=== PATIENT | male | born 1955 | race Caucasian/White ===

== ENCOUNTER 2018-03-19 14:56 | Emergency (ER) | payer OTHER ==
--- NOTE | 2018-03-19 16:05 | ER Document Report ---
ED Medical Screen (RME) - General Mode of Arrival: Ambulatory Information source: Patient TRAVEL OUTSIDE OF THE [place] IN LAST 30 DAYS: No <JAKOB ALEJO - Last Filed: 03/19/18 17:52> <MARGE HEWITT - Last Filed: 03/19/18 19:15> <SALMA ZELAYA - Last Filed: 03/19/18 21:00> - General Chief Complaint: Abdominal Injury Stated Complaint: ABDOMEN INJURY Time Seen by Provider: 03/19/18 15:52 Notes: Patient is a 62-year-old male with a history of recurrent kidney infections and bladder cancer presents to the emergency department complaining of a blood in his urostomy bag. Patient states that he was in [employer] when he walked into a grocery bag andres that possibly punctured his urostomy bag. Patient states he has been bleeding bright red blood in his bag since the incident. Patient reports having the urostomy bag placed in 2007 in [place] due to bladder cancer. [facility] GENERAL: Alert, interacts well. No acute distress. HEAD: Normocephalic, Atraumatic. NECK: Full range of motion. Supple. Trachea midline. LUNGS: No respiratory distress. HEART: Regular rate and rhythm. No murmurs, gallops, or rubs. ABDOMEN: Urostomy bag in place. Output contains bright red blood with no obvious clots, gross amount. Dark red blood at approximately 9'oclock. EXTREMITIES: Moves all four extremities spontaneously. PSYCH: Normal affect, normal mood. I have greeted and performed a rapid initial assessment of this patient. A comprehensive ED assessment and evaluation of the patient, analysis of test results and completion of the medical decision making process will be conducted by additional ED providers. (JAKOB ALEJO) - Related Data Allergies/Adverse Reactions: No Known Allergies Allergy (Unverified 03/13/16 09:38) Past Medical History - General Information source: Patient Renal/ Medical History: Reports: Hx Kidney Stones Past Surgical History: Reports: Hx Urinary Tract Surgery - Bladder resection for cancer, Hx Urostomy - Immunizations Hx Diphtheria, Pertussis, Tetanus Vaccination: Yes <JAKOB ALEJO - Last Filed: 03/19/18 17:52> - Vital signs Vitals: Temp Pulse Resp BP Pulse Ox 98.0 F 67 18 149/75 H 98 03/19/18 15:04 03/19/18 15:04 03/19/18 15:04 03/19/18 15:04 03/19/18 15:04 Course - Laboratory Result Diagrams: 03/19/18 16:15 03/19/18 16:15 <JAKOB ALEJO - Last Filed: 03/19/18 17:52> - Laboratory Result Diagrams: 03/19/18 16:15 03/19/18 16:15 <MARGE HEWITT - Last Filed: 03/19/18 19:15> - Laboratory Result Diagrams: 03/19/18 16:15 03/19/18 16:15 <SALMA ZELAYA - Last Filed: 03/19/18 21:00> - Vital Signs Vital signs: Temp Pulse Resp BP Pulse Ox 97.3 F 50 L 16 144/77 H 100 03/19/18 19:07 03/19/18 19:07 03/19/18 19:07 03/19/18 19:07 03/19/18 19:07 - Laboratory Laboratory results interpreted by me: 03/19/18 03/19/18 16:15 16:15 Chloride 110 H Carbon Dioxide 20 L Creatinine 1.91 H Est GFR ( Amer) 43 L Est GFR (Non-Af Amer) 36 L AST 15 L ALT 17 L Urine Protein 30 H Urine Blood LARGE H Ur Leukocyte Esterase MODERATE H Doctor's Discharge <JAKOB ALEJO - Last Filed: 03/19/18 17:52> <MARGE HEWITT F - Last Filed: 03/19/18 19:15> <SALMA ZELAYA - Last Filed: 03/19/18 21:00> - Discharge Clinical Impression: Complication of urostomy Condition: Good Disposition: HOME, SELF-CARE Instructions: Hematuria ([facility]) Additional Instructions: Your seen today in the emergency room for your urostomy. You are draining some blood, continue to monitor any worsening of your symptoms , if your urostomy stops putting out urine you begin to pass large amounts of blood or have intensifying abdominal pain return to the emergency room as it may be a more serious condition. Forms: Elevated Blood Pressure
[2018-03-19 16:27] LABS: ABSOLUTE EOSINOPHILS # (AUTO) 0.1 10^3/uL (0.0-0.6); ABSOLUTE LYMPHOCYTES (AUTO) 1.6 10^3/uL (0.5-4.7); ABSOLUTE MONOCYTES (AUTO) 0.5 10^3/uL (0.1-1.4); ABSOLUTE NEUT (AUTO) 6.6 10^3/uL (1.7-8.2); BASOPHILS % (AUTO) 0.3 % (0-2); HEMATOCRIT 42.8 % (37.9-51.0); HEMOGLOBIN 14.9 g/dL (13.5-17.0); LYMPHOCYTES % (AUTO) 18.3 % (13-45); MEAN CORPUSCULAR HEMOGLOBIN 32.5 pg (27.0-33.4); MEAN CORPUSCULAR HGB CONC 34.7 g/dL (32.0-36.0); MEAN CORPUSCULAR VOLUME 94 fl (80-97); MONOCYTES % (AUTO) 5.8 % (3-13); PLATELET COUNT 253 10^3/uL (150-450); RED BLOOD COUNT 4.58 10^6/uL (4.35-5.55); RED CELL DISTRIBUTION WIDTH 13.9 % (11.5-14.0); SEGMENTED NEUTROPHILS % (AUTO) 74.6 % (42-78); TOTAL CELLS COUNTED % (AUTO) 100 %; WHITE BLOOD COUNT 8.9 10^3/uL (4.0-10.5)
[2018-03-19 16:33] LABS: PARTIAL THROMBOPLASTIN TIME 28.2 SEC (23.5-35.8)
[2018-03-19 16:37] LABS: INTERNATIONAL RATION (INR) 0.88; PROTHROMBIN TIME 12.4 SEC (11.4-15.4)
[2018-03-19 16:43] LABS: ALANINE AMINOTRANSFERASE 17 U/L (21-72); ALBUMIN 4.3 g/dL (3.5-5.0); ALKALINE PHOSPHATASE 85 U/L (38-126); ANION GAP 10 (5-19); ASPARTATE AMINO TRANSFERASE 15 U/L (17-59); BILIRUBIN,DIRECT 0.3 mg/dL (0.0-0.4); BILIRUBIN,TOTAL 0.5 mg/dL (0.2-1.3); BLOOD UREA NITROGEN 17 mg/dL (7-20); CALCIUM 9.3 mg/dL (8.4-10.2); CARBON DIOXIDE 20 mmol/L (22-30); CHLORIDE 110 mmol/L (98-107); GLUCOSE 108 mg/dL (75-110); SODIUM 139.9 mmol/L (137-145); TOTAL PROTEIN 7.4 g/dL (6.3-8.2)
[2018-03-19 18:32] LABS: BILIRUBIN,URINE NEGATIVE (NEGATIVE); GLUCOSE, URINE NEGATIVE (NEGATIVE); KETONES,URINE NEGATIVE (NEGATIVE); LEUKOCYTE ESTERASE,URINE MODERATE (NEGATIVE); NITRITE,URINE NEGATIVE (NEGATIVE); PROTEIN,URINE 30 mg/dL (NEGATIVE); URINE SPECIFIC GRAVITY 1.008; UROBILINOGEN,URINE NEGATIVE mg/dL (<2.0)
[2018-03-19 18:35] LABS: APPEARANCE,URINE TURBID; COLOR,URINE RED
[2018-03-19 19:08] VITALS: BP 144/77
== END 2018-03-19 19:31 | disposition home or self-care (01) ==
LOC: ER 14:56
DX: N99.538 Other complication of continent stoma of urinary tract (principal); W22.8XXA Striking against or struck by other objects, initial encounter; Z85.51 Personal history of malignant neoplasm of bladder
CPT/HCPCS: 36415; 80053; 81001; 85025; 85610; 85730; 99283

== ENCOUNTER 2018-11-12 23:52 | Emergency (ER) | payer OTHER ==
[2018-11-13] MEDS ORDERED: ASPIRIN 81 MG TABLET, CHEWABLE PO ONE (00:45)
--- NOTE | 2018-11-13 00:47 | ER Document Report ---
ED Medical Screen (RME) - General Chief Complaint: Chest Pain Stated Complaint: CHEST PAIN Time Seen by Provider: 11/13/18 00:43 Mode of Arrival: Wheelchair Information source: Patient Notes: 63-year-old male presented to ED for complaint of chest pain started around 11 PM tonight. He states it was in his left lower chest radiating down both arms. He states he had chest pain in the past but is never lasted this long. He states he had pain and numbness down both arms. He states that he is on chronic pain management of tramadol. He states he took a tramadol about 2 PM and ibuprofen 800 around 2 PM. He states he has a history of high blood pressure but no other cardiac history. He does smoke a pack a day but does not drink or use any drugs. I have greeted and performed a rapid initial assessment of this patient. A comprehensive ED assessment and evaluation of the patient, analysis of test results and completion of medical decision making process will be conducted by an additional ED providers. Dictation of this chart was performed using voice recognition software; therefore, there may be some unintended grammatical errors. TRAVEL OUTSIDE OF THE [place] IN LAST 30 DAYS: No - Related Data Allergies/Adverse Reactions: No Known Allergies Allergy (Unverified 03/13/16 09:38) Past Medical History - Past Medical History Cardiac Medical History: Denies: Hx Coronary Artery Disease Renal/ Medical History: Reports: Hx Kidney Stones. Denies: Hx Peritoneal Dialysis Past Surgical History: Reports: Hx Urinary Tract Surgery - Bladder resection for cancer, Hx Urostomy - Immunizations Hx Diphtheria, Pertussis, Tetanus Vaccination: Yes Physical Exam - Vital signs Vitals: Temp Pulse Resp BP Pulse Ox 97.2 F 53 L 20 173/79 H 100 11/13/18 00:20 11/13/18 00:20 11/13/18 00:20 11/13/18 00:20 11/13/18 00:20 Course - Vital Signs Vital signs: Temp Pulse Resp BP Pulse Ox 97.2 F 53 L 20 173/79 H 100 11/13/18 00:20 11/13/18 00:20 11/13/18 00:20 11/13/18 00:20 11/13/18 00:20
--- NOTE | 2018-11-13 01:53 | RADIOLOGY REPORT (SQ) ---
EXAM DESCRIPTION: [facility]: XR CHEST 2 VIEWS Views: 2 CLINICAL HISTORY: 63 years Male, chest pain radiating down arms COMPARISON: None. FINDINGS: Lungs are symmetrically hyperinflated. No pneumothorax or pleural effusion. No acute infiltrates. There is minimal apical scarring. Possible 5 mm lateral left lower lobe nodule, not definitely calcified. Cardiomediastinal silhouette is within normal limits. Bony structures are unremarkable for age. IMPRESSION: 1. No acute cardiothoracic abnormality. 2. Hyperinflation, typical for COPD 3. Indeterminate 5 mm nodule in the lateral left lower lobe. Comparison with any previous radiographs would be helpful. In the absence of this, noncontrast lung CT should be considered, especially if patient has risk factors for lung carcinoma.
[2018-11-13 03:16] LABS: ABSOLUTE EOSINOPHILS # (AUTO) 0.1 10^3/uL (0.0-0.6); ABSOLUTE LYMPHOCYTES (AUTO) 1.7 10^3/uL (0.5-4.7); ABSOLUTE MONOCYTES (AUTO) 0.6 10^3/uL (0.1-1.4); ABSOLUTE NEUT (AUTO) 6.3 10^3/uL (1.7-8.2); BASOPHILS % (AUTO) 0.4 % (0-2); EOSINOPHILS % (AUTO) 0.8 % (0-6); HEMATOCRIT 38.6 % (37.9-51.0); HEMOGLOBIN 13.8 g/dL (13.5-17.0); LYMPHOCYTES % (AUTO) 19.1 % (13-45); MEAN CORPUSCULAR HGB CONC 35.6 g/dL (32.0-36.0); MEAN CORPUSCULAR VOLUME 90 fl (80-97); MONOCYTES % (AUTO) 7.2 % (3-13); PLATELET COUNT 250 10^3/uL (150-450); RED BLOOD COUNT 4.29 10^6/uL (4.35-5.55); RED CELL DISTRIBUTION WIDTH 13.3 % (11.5-14.0); SEGMENTED NEUTROPHILS % (AUTO) 72.5 % (42-78); TOTAL CELLS COUNTED % (AUTO) 100 %; WHITE BLOOD COUNT 8.7 10^3/uL (4.0-10.5)
[2018-11-13 04:09] LABS: ALANINE AMINOTRANSFERASE 11 U/L (21-72); ALBUMIN 2.1 g/dL (3.5-5.0); ALKALINE PHOSPHATASE 55 U/L (38-126); ANION GAP 6 (5-19); ASPARTATE AMINO TRANSFERASE 11 U/L (17-59); BILIRUBIN,DIRECT 0.4 mg/dL (0.0-0.4); BILIRUBIN,TOTAL 0.4 mg/dL (0.2-1.3); BLOOD UREA NITROGEN 13 mg/dL (7-20); CARBON DIOXIDE 12 mmol/L (22-30); CHLORIDE 125 mmol/L (98-107); CREATINE KINASE 47 U/L (55-170); GLUCOSE 72 mg/dL (75-110); SODIUM 143.4 mmol/L (137-145); TOTAL PROTEIN 4.1 g/dL (6.3-8.2)
[2018-11-13 04:21] LABS: CREATINE KINASE MB 4.35 ng/mL (<4.55)
[2018-11-13 04:23] LABS: CALCIUM 5.6 mg/dL (8.4-10.2); POTASSIUM 2.2 mmol/L (3.6-5.0)
[2018-11-13 04:24] LABS: TROPONIN I 0.256 ng/mL
[2018-11-13] MEDS ORDERED: CALCIUM GLUCONATE 1000 MG/10 ML INJ IV ONE ×2 (04:31→05:34)
[2018-11-13] MEDS ORDERED: MAGNESIUM SULFATE/D5W 1 GM/100 ML RTUPB IV ONE (04:37)
[2018-11-13] MEDS ORDERED: NITROGLYCERIN 0.4 MG/TAB 25 TAB/BOTTLE SL ONE (04:41)
[2018-11-13] MEDS ORDERED: NORMAL SALINE 500 ML IV ONE (05:11)
--- NOTE | 2018-11-13 05:13 | ER Document Report ---
ED General - General Chief Complaint: Chest Pain Stated Complaint: CHEST PAIN Time Seen by Provider: 11/13/18 00:43 Mode of Arrival: Wheelchair TRAVEL OUTSIDE OF THE [place] IN LAST 30 DAYS: No - HPI Notes: Patient is a 63-year-old male presents to the emergency department for evalu ation of chest pain. He states it started while he was at home, at rest. He has had similar pain in the past, but it went away after about 15 minutes. He states today he was laying on the couch when he had a pain across his entire lower chest. It radiated into bilateral elbows, left greater than right. He states he felt some tingling in that side as well. He comes in because it was continuing for longer than normal, over an hour. I asked him if he has pain at the initial evaluation, the patient states "not really." He states he felt somewhat short of breath with it. He denies any nausea, diaphoresis, near syncope with it. Patient has a history of back pain and takes ibuprofen and U ltram. He states he really does not follow very closely with a doctor, as [facility] - Related Data Allergies/Adverse Reactions: No Known Allergies Allergy (Unverified 03/13/16 09:38) Past Medical History - General Information source: Patient - Social History Smoking Status: Current Every Day Smoker Chew tobacco use (# tins/day): No Drug Abuse: None Family History: Other - Unknown, patient does not have a relationship with his siblings or parents Patient has suicidal ideation: No Patient has homicidal ideation: No - Past Medical History Cardiac Medical History: Denies: Hx Coronary Artery Disease Renal/ Medical History: Reports: Hx Kidney Stones Malignancy Medical History: Reports Other - History of bladder cancer, status post urostomy and cystectomy Past Surgical History: Reports: Hx Urinary Tract Surgery - Bladder resection for cancer, Hx Urostomy - Immunizations Hx Diphtheria, Pertussis, Tetanus Vaccination: Yes Review of Systems - Review of Systems Constitutional: No symptoms reported EENT: No symptoms reported Cardiovascular: See HPI Respiratory: No symptoms reported Gastrointestinal: No symptoms reported Genitourinary: No symptoms reported Musculoskeletal: No symptoms reported Skin: No symptoms reported Neurological/Psychological: No symptoms reported Physical Exam - Vital signs Vitals: Temp Pulse Resp BP Pulse Ox 97.2 F 53 L 20 173/79 H 100 11/13/18 00:20 11/13/18 00:20 11/13/18 00:20 11/13/18 00:20 11/13/18 00:20 - Notes Notes: Vital signs reviewed, please refer to chart. Head is normocephalic, atraumatic. Pupils equal round, reactive to light. Neck is supple without meningismus. Heart is regular rate and rhythm. Lungs are clear to auscultation bilaterally. Abdomen is soft, nontender, normoactive bowel sounds throughout. Extremities without cyanosis, clubbing. Posterior calves are nontender. Peripheral pulses are equal. Skin is warm and dry. Patient is awake, alert, neurological exam is nonfocal. Course - Re-evaluation Re-evalutation: 11/13/18 05:13 Patient presents to the emergency department for evaluation. He complains of a chest pain that radiates into bilateral elbows. He is placed on a gas leak inspector and labs were obtained. Evidently there was some difficulty obtaining labs from this gentleman. His EKG showed some diffuse flattening, is difficult to interpret because of wandering baseline. He did not have any old studies available for comparison. He did have some concerning appearing segments that resembled U waves. Laboratory investigations were obtained. There are marketed metabolic abnormalities noted, with renal function being normal. His calcium was markedly low, even with correction for albumin. His potassium was low. His magnesium was low. His phosphorus was low. I went back into reassess the p atient and evaluate for history that could contribute to these derangements. At that time the patient was found to be having significant chest pain, radiating across his lower chest. At that time his heart rate was in the 40s, blood pressure 110 systolic. Pacer pads were placed in the room. He was administered 1 subungual nitroglycerin. He became chest pain-free following that. His heart rate became between 38 and 45. His blood pressure was supported with IV fluids. He was administered IV magnesium, IV calcium, IV fluids, IV potassium. I spoke with our hospitalist, who agrees that in light of a significant end STEMI, the patient would require transfer. I spoke with Dr. Lima, physician at [facility] at 5:50 AM, who accepted the patient in transfer. He did recommend administration of heparin, and this was ordered. 11/13/18 05:54 11/13/18 05:58 - Vital Signs Vital signs: Temp Pulse Resp BP Pulse Ox 98.5 F 53 L 13 114/56 L 98 11/13/18 06:12 11/13/18 00:20 11/13/18 06:12 11/13/18 06:12 11/13/18 06:12 - Laboratory Result Diagrams: 11/13/18 03:09 11/13/18 03:09 Laboratory results interpreted by me: 11/13/18 11/13/18 11/13/18 03:09 03:09 03:35 RBC 4.29 L Potassium 2.2 L* Chloride 125 H Carbon Dioxide 12 L Glucose 72 L Calcium 5.6 L* Phosphorus 2.1 L Magnesium 1.5 L AST 11 L ALT 11 L Creatine Kinase 47 L Total Protein 4.1 L Albumin 2.1 L - EKG Interpretation by Me Additional EKG results interpreted by me: 11/13/18 05:57 First EKG revealed a wandering baseline was difficult to interpret. Sinus bradycardia with a rate of 58 bpm. Normal axis and intervals. Nonspecific ST changes, mild U wave appearing segments. Repeat EKG revealed a sinus bradycardia with a rate of 43 bpm. Normal axis and intervals. Diffuse T wave flattening, ST depression laterally concerning for possible ischemia. Critical Care Note - Critical Care Note Total time excluding time spent on procedures (mins): 45 Discharge - Discharge Clinical Impression: Non-ST elevation [place] (NSTEMI), Hypokalemia, Hypocalcemia, Non-anion gap metabolic acidosis, Hypomagnesemia Condition: Stable Disposition: [facility] Admitting Provider: Dr. Lima
[2018-11-13 05:17] LABS: PHOSPHORUS 2.1 mg/dL (2.5-4.5)
[2018-11-13] MEDS: POTASSI CL 20 MEQ/50 ML RIDER 20 MEQ/50 ML RTUPB IV SCH ×2 (05:39→07:15)
[2018-11-13 06:17] VITALS: BP 114/56
[2018-11-13] MEDS ORDERED: HEPARIN SODIUM,PORCINE/D5W 25,000 UNIT/250 ML RTUINJ IV PRN (06:34)
[2018-11-13] MEDS ORDERED: HEPARIN SOD (PORCINE) 1,000 UNIT/ML 10 ML VIAL IV ONE (06:34)
--- NOTE | 2018-11-13 07:16 | EKG REPORT ---
SEVERITY:- ABNORMAL ECG - SINUS RHYTHM BORDERLINE RIGHT AXIS DEVIATION REPOL ABNRM SUGGESTS ISCHEMIA, ANT-LAT LEADS : Confirmed by: Amandeep Uribe MD 13-Nov-2018 07:15:25
[2018-11-13 07:17] LABS: AMORPHOUS SEDIMENT,URINE TRACE /HPF; APPEARANCE,URINE SLIGHTLY-CLOUDY; BILIRUBIN,URINE NEGATIVE (NEGATIVE); COLOR,URINE YELLOW; GLUCOSE, URINE NEGATIVE (NEGATIVE); KETONES,URINE NEGATIVE (NEGATIVE); LEUKOCYTE ESTERASE,URINE LARGE (NEGATIVE); NITRITE,URINE POSITIVE (NEGATIVE); PROTEIN,URINE 30 mg/dL (NEGATIVE); URINE SPECIFIC GRAVITY 1.009; UROBILINOGEN,URINE NEGATIVE mg/dL (<2.0)
[2018-11-13 08:09] LABS: INTERNATIONAL RATION (INR) 1.18; PROTHROMBIN TIME 15.6 SEC (11.4-15.4)
[2018-11-13] MEDS ORDERED: HEPARIN SOD (PORCINE) 1,000 UNIT/ML 10 ML VIAL IV PRN (09:34)
--- NOTE | 2018-11-13 22:17 | EKG REPORT ---
SEVERITY:- ABNORMAL ECG - SINUS BRADYCARDIA NONSPECIFIC T ABNORMALITIES, LATERAL LEADS : Confirmed by: Amandeep Uribe MD 13-Nov-2018 22:16:16
== END 2018-11-13 08:38 | disposition short-term general hospital (02) ==
LOC: ER 23:52
DX: I21.4 Non-ST elevation (NSTEMI) myocardial infarction (principal); E87.6 Hypokalemia; E83.42 Hypomagnesemia; E87.2 Acidosis; F17.200 Nicotine dependence, unspecified, uncomplicated; Z87.442 Personal history of urinary calculi
CPT/HCPCS: 93005 ×2; 96376; 99291; 96375; 96365; 96367; 36415; 82553; 82550; 83735; 84100; 85025; 85610; 85730; 80053; 81001; 84484; 71046; 93010 ×2; J1644 ×2; J0610; J3475; J3480; J7040

== ENCOUNTER 2019-01-01 09:39 | Emergency (ER) | payer OTHER ==
[2019-01-01] MEDS ORDERED: ASPIRIN 81 MG TABLET, CHEWABLE PO ONE (10:06)
--- NOTE | 2019-01-01 10:09 | ER Document Report ---
ED Medical Screen (RME) - General Chief Complaint: Chest Pain Stated Complaint: CHEST PAIN Time Seen by Provider: 01/01/19 10:02 Notes: Patient is a 63-year-old male presents to the emergency department for chest pain. Patient states at the beginning of November he presents to this emergency department and was found to be having a heart attack. States he was sent to [facility] and inevitably got 2 stents placed in his RCA. Patient states he was at cardiac rehab yesterday when he developed chest pain. States this morning the pain awoke him from sleep which is why he presents to the emergency room. Patient is tearful in triage, very concerned. GENERAL: Alert, interacts well. No acute distress. LUNGS: Clear to auscultation bilaterally, no wheezes, rales, or rhonchi. No respiratory distress. HEART: Regular rate and rhythm. No murmur I have greeted and performed a rapid initial assessment of this patient. A comprehensive ED assessment and evaluation of the patient, analysis of test results and completion of the medical decision making process will be conducted by additional ED providers. I have specifically instructed the patient or family members with the patient to immediately return to any nursing staff should anything change in the patient's condition or with their chief complaint. This medical record was dictated with voice recognizing software. There may be grammatical, syntax errors that are unintended. TRAVEL OUTSIDE OF THE [place] IN LAST 30 DAYS: No - Related Data Allergies/Adverse Reactions: No Known Allergies Allergy (Unverified 03/13/16 09:38) Past Medical History - Social History Frequency of alcohol use: None Drug Abuse: None - Past Medical History Cardiac Medical History: Denies: Hx Coronary Artery Disease Renal/ Medical History: Reports: Hx Kidney Stones. Denies: Hx Peritoneal Dialysis Past Surgical History: Reports: Hx Urinary Tract Surgery - Bladder resection for cancer, Hx Urostomy - Immunizations Hx Diphtheria, Pertussis, Tetanus Vaccination: Yes Physical Exam - Vital signs Vitals: Temp Pulse Resp BP Pulse Ox 97.5 F 61 16 133/63 H 100 01/01/19 10:00 01/01/19 10:00 01/01/19 10:01/01/19 10:01/01/19 10:00 Course - Vital Signs Vital signs: Temp Pulse Resp BP Pulse Ox 97.5 F 61 16 133/63 H 100 01/01/19 10:00 01/01/19 10:00 01/01/19 10:00 01/01/19 10:00 01/01/19 10:00
--- NOTE | 2019-01-01 10:10 | EKG REPORT ---
SEVERITY:- NORMAL ECG - SINUS RHYTHM : Confirmed by: Keisha Rivero 01-Jan-2019 10:09:49
[2019-01-01 10:30] LABS: ABSOLUTE EOSINOPHILS # (AUTO) 0.1 10^3/uL (0.0-0.6); ABSOLUTE LYMPHOCYTES (AUTO) 1.2 10^3/uL (0.5-4.7); ABSOLUTE MONOCYTES (AUTO) 0.6 10^3/uL (0.1-1.4); ABSOLUTE NEUT (AUTO) 5.6 10^3/uL (1.7-8.2); BASOPHILS % (AUTO) 0.4 % (0-2); EOSINOPHILS % (AUTO) 1.4 % (0-6); HEMOGLOBIN 13.5 g/dL (13.5-17.0); LYMPHOCYTES % (AUTO) 16.1 % (13-45); MEAN CORPUSCULAR HEMOGLOBIN 32.4 pg (27.0-33.4); MEAN CORPUSCULAR HGB CONC 34.6 g/dL (32.0-36.0); MEAN CORPUSCULAR VOLUME 94 fl (80-97); MONOCYTES % (AUTO) 7.4 % (3-13); PLATELET COUNT 303 10^3/uL (150-450); RED BLOOD COUNT 4.17 10^6/uL (4.35-5.55); RED CELL DISTRIBUTION WIDTH 14.1 % (11.5-14.0); SEGMENTED NEUTROPHILS % (AUTO) 74.7 % (42-78); TOTAL CELLS COUNTED % (AUTO) 100 %; WHITE BLOOD COUNT 7.5 10^3/uL (4.0-10.5)
[2019-01-01 10:40] LABS: INTERNATIONAL RATION (INR) 1.01; PROTHROMBIN TIME 13.3 SEC (11.4-15.4)
[2019-01-01 10:45] LABS: ALANINE AMINOTRANSFERASE 18 U/L (21-72); ALBUMIN 4.4 g/dL (3.5-5.0); ALKALINE PHOSPHATASE 116 U/L (38-126); ANION GAP 9 (5-19); ASPARTATE AMINO TRANSFERASE 16 U/L (17-59); BILIRUBIN,DIRECT 0.3 mg/dL (0.0-0.4); BILIRUBIN,TOTAL 0.5 mg/dL (0.2-1.3); BLOOD UREA NITROGEN 22 mg/dL (7-20); CALCIUM 9.2 mg/dL (8.4-10.2); CARBON DIOXIDE 22 mmol/L (22-30); CHLORIDE 111 mmol/L (98-107); CREATINE KINASE 46 U/L (55-170); GLUCOSE 92 mg/dL (75-110); POTASSIUM 4.2 mmol/L (3.6-5.0); TOTAL PROTEIN 7.3 g/dL (6.3-8.2)
--- NOTE | 2019-01-01 10:47 | RADIOLOGY REPORT (SQ) ---
EXAM DESCRIPTION: CHEST SINGLE VIEW COMPLETED DATE/TIME: 01/01/2019 10:29 am REASON FOR STUDY: cp COMPARISON: 11/13/2018 NUMBER OF VIEWS: One view. TECHNIQUE: Single frontal radiographic image of the chest acquired. LIMITATIONS: None. FINDINGS: LUNGS AND PLEURA: There is biapical pleural thickening. No consolidation or effusions. MEDIASTINUM AND HILAR STRUCTURES: Normal in appearance. HEART AND VASCULAR STRUCTURES: No cardiomegaly. No failure. BONES: No acute findings. OTHER: No other significant finding. IMPRESSION: Biapical pleural thickening. No acute findings in the chest. TECHNICAL DOCUMENTATION: JOB ID: [id number] [employer]- All Rights Reserved Reading location - IP/workstation name: [email or web address]
[2019-01-01 10:56] LABS: CREATINE KINASE MB 0.47 ng/mL (<4.55)
[2019-01-01 10:57] LABS: TROPONIN I < 0.012 ng/mL
--- NOTE | 2019-01-01 11:42 | ER Document Report ---
ED General - General Chief Complaint: Chest Pain Stated Complaint: CHEST PAIN Time Seen by Provider: 01/01/19 10:02 Primary Care Provider: GENTRY,REFUGIO [Primary Care Provider] - Follow up as needed TRAVEL OUTSIDE OF THE [place] IN LAST 30 DAYS: No - HPI Notes: Patient is a 63-year-old male presents to the emergency department for evaluation of chest pain. Yesterday he developed right-sided chest pain. It lasted for about a minute. He felt somewhat dizzy, but states that this re solved. He has been taking his medications as prescribed. He states he had another pain on the right side that woke him up from sleep this morning, similar to the first. He went to cardiac rehab today, told him about the pain, and they would not clear him to exercise until evaluated. He denies any chest pain at all at this point. He does have a history of recent non-ST elevation [place], with 2 stents placed in the right coronary artery at [facility] earlier this month. - Related Data Allergies/Adverse Reactions: No Known Allergies Allergy (Unverified 03/13/16 09:38) Home Medications: lisinopril 20mg daily. atrovastatin 80mg daily. brilinta 90mg BID. asa 81mg daily. omeprazole 20mg daily. pantoprazole 40mg daily Past Medical History - General Information source: Patient - Social History Smoking Status: Former Smoker Frequency of alcohol use: None Drug Abuse: None Family History: Other - Unknown, patient does not have a relationship with his siblings or parents Patient has suicidal ideation: No Patient has homicidal ideation: No - Past Medical History Cardiac Medical History: Reports: Hx Coronary Artery Disease, Hx Hypercholesterolemia, Hx Hypertension Renal/ Medical History: Reports: Hx Kidney Stones. Denies: Hx Peritoneal Dialysis Malignancy Medical History: Reports Other - Bladder cancer Past Surgical History: Reports: Hx Urinary Tract Surgery - Bladder resection for cancer, Hx Urostomy - Immunizations Hx Diphtheria, Pertussis, Tetanus Vaccination: Yes Review of Systems - Review of Systems Constitutional: No symptoms reported EENT: No symptoms reported Cardiovascular: See HPI Respiratory: No symptoms reported Gastrointestinal: No symptoms reported, Nausea Musculoskeletal: No symptoms reported Skin: No symptoms reported Neurological/Psychological: No symptoms reported Physical Exam - Vital signs Vitals: Temp Pulse Resp BP Pulse Ox 97.5 F 61 16 133/63 H 100 01/01/19 10:00 01/01/19 10:00 01/01/19 10:00 01/01/19 10:00 01/01/19 10:00 - Notes Notes: This is a pleasant 63-year-old male, tearful, in no acute distress. Vital signs reviewed, please refer to chart. Head is normocephalic, atraumatic. Pupils equal round, reactive to light. Neck is supple without meningismus. Heart is regular rate and rhythm. Lungs are clear to auscultation bilaterally. Abdomen is soft, nontender, normoactive bowel sounds throughout. Extremities without cyanosis, clubbing. Posterior calves are nontender. Peripheral pulses are equal. Skin is warm and dry. Patient is awake, alert, neurological exam is nonfocal. Course - Re-evaluation Re-evalutation: 01/01/19 11:40 Patient presents emergency department for evaluation. Laboratory investigations were obtained, he is placed on a media monitor, imaging ordered. He was initially seen through triage. Laboratory investigations revealed an acute abnormality in his renal function. Patient has a history of urostomy, states output has been normal. He has not followed with urology for some time for this. Laboratory investigations revealed a negative troponin. He is chest pain-free at this time. We will order repeat, continue to follow. 01/01/19 14:58 Patient remained chest pain-free throughout the course of his stay. His repeat troponin was negative. I did discuss his abnormal renal function with the patient. He does take ibuprofen 800 mg regularly. He is told to discontinue this. He is told that if his urostomy output decreases he needs to follow-up immediately or return to the ED. He voiced understanding to this. I will then give him a lab slip to have his metabolic panel rechecked next week. If his chest pain returns, or he develops new or concerning symptoms of any sort, he is to return immediately to the emergency department for reevaluation. He voiced understanding to this and was discharged. - Vital Signs Vital signs: Temp Pulse Resp BP Pulse Ox 97.6 F 61 14 140/71 H 100 01/01/19 15:17 01/01/19 10:00 01/01/19 15:01 01/01/19 15:00 01/01/19 15:01 - Laboratory Result Diagrams: 01/01/19 10:11 01/01/19 10:11 Laboratory results interpreted by me: 01/01/19 01/01/19 10:11 10:11 RBC 4.17 L RDW 14.1 H Chloride 111 H BUN 22 H Creatinine 2.46 H Est GFR ( Amer) 32 L Est GFR (Non-Af Amer) 27 L AST 16 L ALT 18 L Creatine Kinase 46 L - Diagnostic Test Radiology reviewed: Reports reviewed Radiology results interpreted by me: 01/01/19 11:41 Chest X-Ray 01/01/19 10:06 IMPRESSION: Biapical pleural thickening. No acute findings in the chest. - EKG Interpretation by Me Additional EKG results interpreted by me: 01/01/19 11:41 Sinus bradycardia with a rate of 57 bpm. Normal axis and intervals. No acute ST changes concerning for ischemia or infarction. Discharge - Discharge Clinical Impression: Abnormal renal function Chest pain Qualifiers: Chest pain type: unspecified Qualified Code(s): R07.9 - Chest pain, unspecified Condition: Stable Disposition: HOME, SELF-CARE Instructions: Chest Pain of Unclear Cause ([facility]), Kidney Function Abnormality ([facility]) Additional Instructions: No clear cause was identified for your chest pain today. Her lab work did reveal abnormal kidney function. Please stop taking your ibuprofen. [facility]. Have your lab work drawn next Friday to reevaluate this. If you develop decreased urostomy output, increased chest pain, or any other new or concerning symptoms, return immediately to the emergency department for reevaluation. Forms: Follow-Up Laboratory Testing Referrals: [facility] [Primary [facility] Provider] - Follow up as needed
[2019-01-01 15:08] VITALS: BP 140/71
== END 2019-01-01 15:17 | disposition home or self-care (01) ==
LOC: ER 09:39
DX: R94.4 Abnormal results of kidney function studies (principal); R07.9 Chest pain, unspecified; R42 Dizziness and giddiness; I25.2 Old myocardial infarction; Z79.899 Other long term (current) drug therapy; Z87.891 Personal history of nicotine dependence; I25.10 Atherosclerotic heart disease of native coronary artery without angina pectoris; I10 Essential (primary) hypertension
CPT/HCPCS: 36415; 71045; 80053; 82550; 82553; 84484; 85025; 85610; 93005; 93010; 99285

== ENCOUNTER 2019-04-29 08:00 | Day surgery (SDC) | payer OTHER ==
[2019-04-29 08:59] LABS: ANION GAP 14 (5-19); BLOOD UREA NITROGEN 15 mg/dL (7-20); CALCIUM 9.2 mg/dL (8.4-10.2); CARBON DIOXIDE 19 mmol/L (22-30); CHLORIDE 111 mmol/L (98-107); GLUCOSE 90 mg/dL (75-110); POTASSIUM 3.8 mmol/L (3.6-5.0)
[2019-04-29] MEDS ORDERED: PROPOFOL INJ 200 MG/20 ML VIAL IV ONE (11:12)
--- NOTE | 2019-04-29 11:12 | EKG REPORT ---
SEVERITY:- DEFECTIVE ECG - SINUS RHYTHM BORDERLINE RIGHT AXIS DEVIATION LOW VOLTAGE IN FRONTAL LEADS LEAD PLACEMENT ERROR V2. : Confirmed by: Amandeep Uribe MD 29-Apr-2019 11:12:19
[2019-04-29 12:53] VITALS: BP 113/67
--- NOTE | 2019-04-30 12:06 | Operative Report ---
Nonrecallable Operative Report DATE OF SURGERY: 04/29/19 PREOPERATIVE DIAGNOSIS: Rectal bleeding, rectal pain, anal fissure. POSTOPERATIVE DIAGNOSIS: 1. Colon polyps. 2. Moderate internal hemorrhoids, no active bleeding. OPERATION: 1. Colonoscopy to the cecum. 2. Hot biopsy of several colon polyps. SURGEON: NADEEM SIMPSON ANESTHESIA: LMAC TISSUE REMOVED OR ALTERED: 1. Hot biopsy of colon polyp at hepatic flexure. 2. Hot biopsy of colon polyp at 20 cm. COMPLICATIONS: None apparent ESTIMATED BLOOD LOSS: Minimal PROCEDURE: Drains/implants: None. Procedure in detail: After informed consent was obtained, the patient was brought to the operating room and laid in the left lateral decubitus position. The endoscope was passed up the rectum sigmoid colon, descending colon, across the transverse colon, down the ascending colon, and into the cecum. The ileocecal valve and appendiceal orifice were identified. The scope was then withdrawn, circumferentially noting the mucosa. The prep was fair. Multiple washings and suctioning's were required in order to fully visualize the colonic mucosa. This was successful. The scope was then withdrawn past the ascending colon, into the hepatic flexure. A small polyp was identified. This polyp was removed via hot biopsy forcep, as it was very small. The scope was then withdrawn past the transverse colon, down the descending colon, and into the sigmoid colon. At 20 cm, another small polyp was identified and removed via hot biopsy forcep. The scope was then withdrawn into the rectum. In the rectum, a retroflexion maneuver was performed. Moderate-sized internal hemorrhoids were identified. There was no active bleeding. The scope was straightened, air was suctioned from the rectum, the scope was removed, and the procedure was concluded. All sponge, instrument, and needle counts were correct. Condition: Stable.
--- NOTE | 2019-04-30 12:07 | Discharge Summary ---
Discharge Summary (SDC) - Discharge Final Diagnosis: Rectal pain, rectal bleeding, anal fissure, internal hemorrhoids, colon polyps. Date of Surgery: 04/29/19 Discharge Date: 04/29/19 Condition: Good Forms: EU Anesthesia D/C Instructions, Discharge POC-Surgical Service Treatment or Instructions: STAY OFF BLOOD THINNERS FOR THE NEXT TWO DAYS Referrals: NADEEM SIMPSON MD [ACTIVE STAFF] - Discharge Diet: As Tolerated Respiratory Treatments at Home: Deep Breathing/Coughing, Incentive Spirometer Discharge Activity: Balance Activity w/Rest, No Driving Home Care Assistance: None Needed Report the Following to Your Physician Immediately: Shortness of Breath, Nausea, Vomiting, Increase in Pain, Fever over 101 Degrees, Unusual Bleeding, IV Site Infection Signs
== END 2019-04-29 12:55 | disposition home or self-care (01) ==
LOC: END 08:00
PROVIDERS: ATTEND Surgery
DX: K62.89 Other specified diseases of anus and rectum (principal); K62.5 Hemorrhage of anus and rectum; K64.8 Other hemorrhoids; Z85.51 Personal history of malignant neoplasm of bladder; Z93.6 Other artificial openings of urinary tract status; Z86.73 Personal history of transient ischemic attack (TIA), and cerebral infarction without residual deficits; Z95.5 Presence of coronary angioplasty implant and graft
CPT/HCPCS: 45384; 36415; 80048; 88305 ×2; 93005; 93010; 00811; J2704; 811

== ENCOUNTER → 2019-09-02 | Outpatient (CLI) | payer OTHER ==
--- NOTE | 2019-09-02 15:28 | RADIOLOGY REPORT (SQ) ---
EXAM DESCRIPTION: U/S RETROPERITON (RENAL/AORTA) COMPLETED DATE/TIME: 09/02/2019 3:17 pm REASON FOR STUDY: N18.4 CHRONIC KIDNEY DISEASE, STAGE 4 (SEVERE) N18.4 CHRONIC KIDNEY DISEASE, STAG E 4 (SEVERE) COMPARISON: None. TECHNIQUE: Dynamic and static grayscale images acquired of the kidneys and bladder and recorded on P ACS. Additional selected color Doppler and spectral images recorded. LIMITATIONS: None. FINDINGS: RIGHT KIDNEY: The right kidney measures 10.1 cm in length. There is cortical thinning. Echogenicity is slightly increased. No solid or suspicious masses. No hydronephrosis. No calci fications. LEFT KIDNEY: The left kidney measures 10.3 cm in length. There is cortical thinning. There is inc reased echogenicity. No solid or suspicious masses. No hydronephrosis. No calcifications. BLADDER: No masses. OTHER FINDINGS: No other significant finding. IMPRESSION: Increased echogenicity bilaterally consistent with medical renal disease. No hydronephr osis. No masses. TECHNICAL DOCUMENTATION: JOB ID: [id number] [employer]- All Rights Reserved Reading location - IP/workstation name: [email or web address]
== END ==
LOC: RAD 14:32
PROVIDERS: ATTEND Internal Medicine Nephrology
DX: N18.4 Chronic kidney disease, stage 4 (severe) (principal)
CPT/HCPCS: 76770

== ENCOUNTER 2019-11-09 16:30 | Inpatient (IN) | payer OTHER, MEDICARE ==
[2019-11-09] MEDS ORDERED: NORMAL SALINE 1000 ML 1,000 ML IV ONE ×2 (16:58→18:44)
--- NOTE | 2019-11-09 17:42 | ER Document Report ---
ED General - General Chief Complaint: Blood Pressure Problem Stated Complaint: LOW BLOOD PRESSURE Time Seen by Provider: 11/09/19 16:47 Primary Care Provider: JORGE BAZAN MD [Primary Care Provider] - Follow up as needed Mode of Arrival: Medic Information source: Patient TRAVEL OUTSIDE OF THE [place] IN LAST 30 DAYS: No - HPI Notes: Patient is brought by ambulance from a clinic. Apparently at the clinic he had a low blood pressure of approximately 70 systolic and was complaining of being lightheaded and dizzy. Therefore they transferred the patient to the emergency department. He states that for 1 week he has been experiencing lightheadedness and dizziness and noticed when he takes his blood pressure at home that it is also low. He states it is been around 70 systolic at home. Currently he denies any symptoms. States that he feels better. He denies any pain. Some mild shortness of breath but no cough or cold. No known COVID exposures. No diarrhea or vomiting. Patient symptoms of lightheadedness have been intermittent. They have been made worse by exertion and better with rest. They do radiate throughout his body. - Related Data Allergies/Adverse Reactions: No Known Allergies Allergy (Verified 04/29/19 08:20) Past Medical History - General Information source: Patient - Social History Smoking Status: Former Smoker Frequency of alcohol use: None Drug Abuse: None Family History: Other - Unknown, patient does not have a relationship with his siblings or parents - Past Medical History Cardiac Medical History: Reports: Hx Coronary Artery Disease, Hx Heart Attack - 11/2018 STENTS X2, Hx Hypercholesterolemia, Hx Hypertension Pulmonary Medical History: Denies: Hx Asthma, Hx Bronchitis, Hx COPD, Hx Pneumonia Neurological Medical History: Denies: Hx Cerebrovascular Accident, Hx Seizures Renal/ Medical History: Reports: Hx Kidney Stones. Denies: Hx Peritoneal Dialysis Musculoskeletal Medical History: Denies Hx Arthritis Past Surgical History: Reports: Hx Cardiac Catheterization - 2 stents, Hx Car diac Surgery, Hx Urinary Tract Surgery - Bladder resection for cancer, Hx Urostomy - Immunizations Hx Diphtheria, Pertussis, Tetanus Vaccination: Yes Review of Systems - Review of Systems Constitutional: Malaise, Weakness. denies: Chills Cardiovascular: denies: Chest pain, Palpitations Respiratory: Short of breath. denies: Cough -: Yes All other systems reviewed and negative Physical Exam - Vital signs Vitals: BP 105/61 11/09/19 18:24 Interpretation: Normal - General General appearance: Appears well, Alert - HEENT Head: Normocephalic, Atraumatic Eyes: Normal Pupils: PERRL - Respiratory Respiratory status: No respiratory distress Chest status: Nontender Breath sounds: Normal Chest palpation: Normal - Cardiovascular Rhythm: Regular Heart sounds: Normal auscultation Murmur: No - Abdominal Inspection: Normal Distension: No distension Bowel sounds: Normal Tenderness: Nontender Organomegaly: No organomegaly - Back Back: Normal, Nontender - Extremities General upper extremity: Normal inspection, Nontender, Normal color, Normal ROM, Normal temperature General lower extremity: Normal inspection, Nontender, Normal color, Normal ROM, Normal temperature, Normal weight bearing. No: Sandor's sign - Neurological Neuro grossly intact: Yes Cognition: Normal Orientation: AAOx4 Chance Coma Scale Eye Opening: Spontaneous [place] Coma Scale Verbal: Oriented Chance Coma Scale Motor: Obeys Commands Chance Coma Scale Total: 15 Speech: Normal Motor strength normal: LUE, RUE, LLE, RLE Sensory: Normal - Psychological Associated symptoms: Normal affect, Normal mood - Skin Skin Temperature: Warm Skin Moisture: Dry Skin Color: Normal Course - Re-evaluation Re-evalutation: 11/09/19 19:17 Patient's labs returned showing patient to be in acute renal failure. Etiology of this at this time remains a mystery. Patient does have clear yellow urine in his urostomy bag. Patient has no obvious signs of infection anywhere. His blood pressure here is been stable the whole time. He has been relatively asymptomatic here as well. Orthostatics here were unremarkable. I have disc ussed the case with his pricing intern who recommends admission. His electrolytes are stable other than bicarb which is low. He will be rehydrated and admitted to the hospital. - Vital Signs Vital signs: Temp Pulse Resp BP Pulse Ox 105/61 11/09/19 18:24 - Laboratory Result Diagrams: 11/09/19 17:48 11/09/19 17:48 Laboratory results interpreted by me: 11/09/19 11/09/19 17:48 17:48 RBC 4.00 L MCH 33.7 H Lymph % (Auto) 12.9 L Seg Neutrophils % 79.3 H Sodium 132.6 L Carbon Dioxide 12 L BUN 81 H Creatinine 5.11 H Est GFR ( Amer) 14 L Est GFR (MDRD) Non-Af 11 L - EKG Interpretation by Me EKG shows normal: Sinus rhythm Rate: Normal - 69 Rhythm: NSR [place]/QRS: No: Right axis deviation, Left axis deviation Discharge - Discharge Clinical Impression: Acute renal failure Qualifiers: Acute renal failure type: unspecified Qualified Code(s): N17.9 - Acute kidney failure, unspecified Condition: Serious Disposition: ADMITTED INPATIENT Admitting Provider: [place] (Hospitalist) Unit Admitted: IMCU Referrals: JORGE BAZAN MD [Primary Care Provider] - Follow up as needed
[2019-11-09 18:05] LABS: ABSOLUTE MONOCYTES (AUTO) 0.5 10^3/uL (0.1-1.4); ABSOLUTE NEUT (AUTO) 6.1 10^3/uL (1.7-8.2); BASOPHILS % (AUTO) 0.5 % (0-2); EOSINOPHILS % (AUTO) 0.5 % (0-6); HEMATOCRIT 38.8 % (37.9-51.0); HEMOGLOBIN 13.5 g/dL (13.5-17.0); LYMPHOCYTES % (AUTO) 12.9 % (13-45); MEAN CORPUSCULAR HEMOGLOBIN 33.7 pg (27.0-33.4); MEAN CORPUSCULAR HGB CONC 34.7 g/dL (32.0-36.0); MEAN CORPUSCULAR VOLUME 97 fl (80-97); MONOCYTES % (AUTO) 6.8 % (3-13); PLATELET COUNT 191 10^3/uL (150-450); RED CELL DISTRIBUTION WIDTH 13.5 % (11.5-14.0); SEGMENTED NEUTROPHILS % (AUTO) 79.3 % (42-78); TOTAL CELLS COUNTED % (AUTO) 100 %; WHITE BLOOD COUNT 7.7 10^3/uL (4.0-10.5)
[2019-11-09 18:21] LABS: ALBUMIN 4.3 g/dL (3.5-5.0); ALKALINE PHOSPHATASE 91 U/L (38-126); ANION GAP 15 (5-19); ASPARTATE AMINO TRANSFERASE 17 U/L (17-59); BILIRUBIN,DIRECT 0.1 mg/dL (0.0-0.4); BILIRUBIN,TOTAL 0.6 mg/dL (0.2-1.3); BLOOD UREA NITROGEN 81 mg/dL (7-20); CALCIUM 8.8 mg/dL (8.4-10.2); CARBON DIOXIDE 12 mmol/L (22-30); CHLORIDE 106 mmol/L (98-107); GLUCOSE 96 mg/dL (75-110); POTASSIUM 4.8 mmol/L (3.6-5.0); TOTAL PROTEIN 7.1 g/dL (6.3-8.2)
[2019-11-09] MEDS ORDERED: MAGNESIUM HYDROXIDE SUSP 30 ML UDCUP PO PRN (19:18)
[2019-11-09] MEDS ORDERED: IPRATROPIUM/ALBUTEROL 0.5-2.5 MG/3 ML AMPUL NEB PRN (19:18)
[2019-11-09] MEDS ORDERED: MAG HYDROX/AL HYDROX/SIMETH SUSP 30 ML UDCUP PO PRN (19:18)
[2019-11-09] MEDS ORDERED: NORMAL SALINE 1000 ML 1,000 ML IV SCH (19:30)
--- NOTE | 2019-11-09 19:38 | EKG REPORT ---
SEVERITY:- OTHERWISE NORMAL ECG - SINUS RHYTHM LOW VOLTAGE IN FRONTAL LEADS : Confirmed by: Keisha Rivero 09-Nov-2019 19:37:19
[2019-11-09] MEDS: HEPARIN SOD (PORCINE) 5,000 UNIT/ML 1 ML VIAL SUBCUT SCH (22:22)
[2019-11-09] MEDS: NORMAL SALINE 1000 ML 1,000 ML IV PRN (22:34)
[2019-11-10] MEDS ORDERED: TICAGRELOR 90 MG TABLET ONE (00:47)
[2019-11-10] MEDS: TICAGRELOR 90 MG TABLET PO SCH ×3 (00:50→22:24)
[2019-11-10] MEDS: NORMAL SALINE 1000 ML 1,000 ML IV PRN ×2 (02:52→06:38)
[2019-11-10] MEDS ORDERED: HYDROCORTISONE SOD SUCCINATE INJ/PF 100 MG/2 ML SDV IV ONE (04:20)
--- NOTE | 2019-11-10 04:20 | PDOC H&P ---
History of Present Illness Admission Date/PCP: 11/09/19 19:24 JORGE BAZAN MD Patient complains of: Low blood pressure History of Present Illness: TIFFANY PARKER is a 64 year old male with a past medical history of coronary artery disease with stent placement November 2018, hypertension, dyslipidemia, chronic kidney disease and remote bladder cancer status post resection with urostomy. He presents with approximately 2 weeks of fatigue and lightheadedness poor p.o. intake and low urine output prompting him to seek his primary care provider Dr. Bazan. Work-up revealed a rapid reduction in GFR prompting referral to the emergency department where he is found to have a creatinine of 5 from a baseline of 2 and hypotension of 90 systolic without tachycardia. He is started on IV fluid and referred to the hospitalist for admission. Patient denies recent change in medication with exception to calcium carbonate and vitamin D 3 days ago. He denies chest pain nausea vomiting or shortness of breath. Past Medical History Cardiac Medical History: Reports: Coronary Artery Disease, Myocardial Infarction - 11/2018 STENTS X2, Hyperlipidema, Hypertension Pulmonary Medical History: Denies: Asthma, Bronchitis, Chronic Obstructive Pulmonary Disease (COPD), Pneumonia Neurological Medical History: Denies: Seizures Musculoskeltal Medical History: Denies: Arthritis Psychiatric Medical History: Denies: Depression Hematology: Denies: Anemia Past Surgical History Past Surgical History: Reports: Cardiac Catheterization - 2 stents, Other - Bladder cancer resection with urostomy Social History Information Source: Patient, [facility], [facility] Records Smoking Status: Former Smoker Electronic Cigarette use?: No Frequency of Alcohol Use: None Drugs: None - Advance Directive Resuscitation Status: Full Code Family History Family History: Other - Unknown, patient does not have a relationship with his siblings or parents Parental Family History Reviewed: Yes Children Family History Reviewed: Yes Sibling(s) Family History Reviewed.: Yes Medication/Allergy Home Medications: Atorvastatin Calcium [Lipitor 80 mg Tablet] 80 mg PO QHS 04/28/19 Lisinopril [Prinivil 10 mg Tablet] 10 mg PO DAILY 04/28/19 Pantoprazole Sodium [Protonix [address] Tablet] 40 mg PO Q6AM 04/28/19 Ticagrelor [Brilinta 90 mg Tablet] 90 mg PO Q12 04/28/19 Aspirin [Aspirin 81 mg Chewable Tablet] 81 mg PO DAILY 11/09/19 Cholecalciferol (Vitamin D3) [Vitamin D3 1000 Unit Tablet] 2,000 unit PO DAILY 11/09/19 Furosemide [Lasix 20 mg Tablet] 20 mg PO DAILY 11/09/19 Sodium Bicarbonate [Sodium Bicarbonate 650 mg Tablet] 650 mg PO DAILY 11/09/19 Allergies/Adverse Reactions: No Known Allergies Allergy (Verified 04/29/19 08:20) Review of Systems Constitutional: PRESENT: as per HPI, fatigue, weakness. ABSENT: chills, fever(s), headache(s), weight gain, weight loss Eyes: ABSENT: visual disturbances Ears: ABSENT: hearing changes Cardiovascular: ABSENT: chest pain, dyspnea on exertion, edema, orthropnea, palpitations Respiratory: ABSENT: cough, hemoptysis Gastrointestinal: ABSENT: abdominal pain, constipation, diarrhea, hematemesis, hematochezia, nausea, vomiting Genitourinary: ABSENT: dysuria, hematuria Musculoskeletal: ABSENT: joint swelling Integumentary: ABSENT: rash, wounds Neurological: ABSENT: abnormal gait, abnormal speech, confusion, dizziness, focal weakness, syncope Psychiatric: ABSENT: anxiety, depression, homidical ideation, suicidal ideation Endocrine: ABSENT: cold intolerance, heat intolerance, polydipsia, polyuria Hematologic/Lymphatic: ABSENT: easy bleeding, easy bruising Physical Exam Vital Signs: Temp Pulse Resp BP Pulse Ox 97.6 F 97 20 97/58 L 97 11/09/19 23:46 11/10/19 02:00 11/09/19 23:46 11/09/19 23:46 11/09/19 22:06 Intake & Output 11/08/19 11/09/19 11/10/19 11:59 11:59 11:59 Intake Total 3240 Output Total 400 Balance 2840 Weight 83.4 kg General appearance: PRESENT: no acute distress, cooperative, thin, well- developed, well-nourished Head exam: PRESENT: atraumatic, normocephalic Eye exam: PRESENT: conjunctiva pink, EOMI, PERRLA. ABSENT: scleral icterus Ear exam: PRESENT: normal external ear exam Mouth exam: PRESENT: moist, tongue midline Neck exam: ABSENT: carotid bruit, JVD, lymphadenopathy, thyromegaly Respiratory exam: PRESENT: clear to auscultation j luis. ABSENT: rales, rhonchi, wheezes Cardiovascular exam: PRESENT: RRR. ABSENT: diastolic murmur, rubs, systolic murmur Pulses: PRESENT: normal dorsalis pedis pul Vascular exam: PRESENT: normal capillary refill GI/Abdominal exam: PRESENT: normal bowel sounds, soft. ABSENT: distended, guarding, mass, organolmegaly, rebound, tenderness Rectal exam: PRESENT: deferred Extremities exam: PRESENT: full ROM. ABSENT: calf tenderness, clubbing, pedal edema Neurological exam: PRESENT: alert, awake, oriented to person, oriented to place, oriented to time, oriented to situation, CN II-XII grossly intact. ABSENT: motor sensory deficit Psychiatric exam: PRESENT: appropriate affect, normal mood. ABSENT: homicidal ideation, suicidal ideation Skin exam: PRESENT: dry, intact, warm. ABSENT: cyanosis, rash Results Laboratory Results: 11/09/19 17:48 11/09/19 17:48 11/09/19 11/09/19 11/09/19 17:48 17:48 17:48 WBC 7.7 RBC 4.00 L Hgb 13.5 Hct 38.8 MCV 97 MCH 33.7 H MCHC 34.7 RDW 13.5 Plt Count 191 Seg Neutrophils % 79.3 H Sodium 132.6 L Potassium 4.8 Chloride 106 Carbon Dioxide 12 L Anion Gap 15 BUN 81 H Creatinine 5.11 H Est GFR ( Amer) 14 L Glucose 96 Lactic Acid 1.0 Calcium 8.8 Total Bilirubin 0.6 AST 17 Alkaline Phosphatase 91 Total Protein 7.1 Albumin 4.3 11/09/19 11/09/19 17:48 21:23 Troponin I < 0.012 < 0.012 Assessment and Plan - Diagnosis (1) Hypotension Is this a current diagnosis for this admission?: Yes Plan: Somewhat prerenal, unclear if adrenal insufficient, avoid nephrotoxic meds and doses, IV fluid challenge, follow-up TSH, urinalysis, random cortisol, chemistry and nephrology consult. (2) Acute renal failure Qualifiers: Acute renal failure type: unspecified Qualified Code(s): N17.9 - Acute kidney failure, unspecified Is this a current diagnosis for this admission?: Yes Plan: Multifactorial, underlying chronic kidney disease, prerenal, follow-up labs suggested #1 and nephrology consult. (3) Adrenal insufficiency Is this a current diagnosis for this admission?: Yes Plan: Possible, follow-up random cortisol, Solu-Cortef as needed - Time Time Spent with patient: 25-34 minutes - Inpatient Certification Medical Necessity: Need Close Monitoring Due to Risk of Patient Decompensation
[2019-11-10] MEDS: HEPARIN SOD (PORCINE) 5,000 UNIT/ML 1 ML VIAL SUBCUT SCH ×3 (05:29→22:24)
[2019-11-10] MEDS: PANTOPRAZOLE SODIUM 40 MG TABLET.DR PO SCH (05:29)
[2019-11-10 06:08] LABS: ABSOLUTE LYMPHOCYTES (AUTO) 0.9 10^3/uL (0.5-4.7); ABSOLUTE MONOCYTES (AUTO) 0.5 10^3/uL (0.1-1.4); ABSOLUTE NEUT (AUTO) 3.5 10^3/uL (1.7-8.2); BASOPHILS % (AUTO) 0.4 % (0-2); EOSINOPHILS % (AUTO) 0.6 % (0-6); HEMATOCRIT 35.9 % (37.9-51.0); HEMOGLOBIN 12.3 g/dL (13.5-17.0); LYMPHOCYTES % (AUTO) 19.1 % (13-45); MEAN CORPUSCULAR HEMOGLOBIN 33.4 pg (27.0-33.4); MEAN CORPUSCULAR HGB CONC 34.3 g/dL (32.0-36.0); MEAN CORPUSCULAR VOLUME 97 fl (80-97); MONOCYTES % (AUTO) 9.3 % (3-13); PLATELET COUNT 146 10^3/uL (150-450); RED BLOOD COUNT 3.69 10^6/uL (4.35-5.55); RED CELL DISTRIBUTION WIDTH 13.7 % (11.5-14.0); SEGMENTED NEUTROPHILS % (AUTO) 70.6 % (42-78); TOTAL CELLS COUNTED % (AUTO) 100 %; WHITE BLOOD COUNT 4.9 10^3/uL (4.0-10.5)
[2019-11-10 06:26] LABS: ANION GAP 11 (5-19); BLOOD UREA NITROGEN 70 mg/dL (7-20); CALCIUM 8.3 mg/dL (8.4-10.2); CARBON DIOXIDE 13 mmol/L (22-30); CHLORIDE 115 mmol/L (98-107); GLUCOSE 77 mg/dL (75-110); POTASSIUM 4.4 mmol/L (3.6-5.0)
[2019-11-10] MEDS: ASPIRIN 81 MG TABLET, CHEWABLE PO SCH (09:45)
[2019-11-10] MEDS: SODIUM BICARBONATE 650 MG TABLET PO SCH (09:45)
[2019-11-10] MEDS: DOCUSATE SODIUM 100 MG CAPSULE PO SCH ×2 (09:45→17:51)
--- NOTE | 2019-11-10 11:56 | PDOC CONSULTATION ---
Consultation Consult Date: 11/10/19 Provider Consulted: JORGE BAZAN Consult reason:: PHILIPPE/CKD History of Present Illness Admission Date/PCP: 11/09/19 19:24 JORGE BAZAN MD History of Present Illness: TIFFANY PARKER is a 64 year old male known to me with history of chronic kidney disease stage III, hypertensive nephrosclerosis, coronary artery disease, hypertension, chronic metabolic acidosis, history of bladder cancer status post cystectomy and urostomy and peripheral vascular disease who presented to the emergency room yesterday because of hypotension. Patient states that yesterday while he was at home watching TV he felt dizzy, sort of funny, drowsy so he checked his blood pressure and it was 67/50. He said his blood pressure for about a week now has been low with systolic blood pressure less than 80s. He actually went to his distribution operations manager, Dr. Rivero couple of days ago prior to admission on November 07 and he remembered his systolic blood pressure was also in the 70s. He was told to stop the lisinopril at that point. About 3 weeks ago patient has started with bilateral lower extremity edema so he went to see Dr. Rivero's office and he was started on furosemide 20 mg daily. The first 2 days he has increased urine output and his leg swelling has completely resolved but he continued taking the furosemide until now. He said his usual blood pressure is around systolic of 80-100 at baseline but not lower than 80s. So yesterday his son brought him first to the urgent care and EMS was called and brought him to the emergency room. He denies chest pains, shortness of breath no any other complaints aside from the above. He said is eating fairly. He did mention that his urine output decreased after the first few days on furosemide and he has noticed a significant decrease in urine output from his urostomy bag for the last 1-1/2 weeks at least. In the emergency room yesterday his blood pressure was around 97/58 and today he still has low blood pressure at 86/53. He was given a total of about 4 L of normal saline upon presentation. He was also given hydrocortisone 100 mg x 1 dose with consideration of adrenal insufficiency. His initial BUN was 81 with creatinine of 5.11. Today he has a BUN of 70 and creatinine of 3.86. On October 13, 2019 when I did labs for him prior to a phone visit he had a BUN of 11, creatinine of 2.0 with EGFR of 33.77 which is his baseline. His serum creatinine usually ranges anywhere between 1.9-2.3 for the last year at least. His bicarbonate is also low at 12 upon presentation currently at 13. 3 weeks ago his bicarbonate was 17.9 so I started him on oral sodium bicarbonate tablets which he said he is taking. Currently he said he feels better compared to yesterday. Past Medical History Cardiac Medical History: Reports: Coronary Artery Disease, Hyperlipidemia, Myocardial Infarction - 11/2018 STENTS X2, Peripheral Vascular Disease, Other - Venous insufficiency Renal/ Medical History: Reports: Chronic Kidney Disease Stage III, Metabolic Acidosis Malignancy Medical History: Reports: Other - Bladder cancer in 2006, status post cystectomy and urostomy GI Medical History: Reports: Gastroesophageal Reflux Disease, Other - Alcoholic gastritis Musculoskeltal Medical History: Reports: Other - Chronic neuropathic pain on the feet Hematology Medical History: Reports Anemia of Chronic Kidney Disease Past Surgical History Past Surgical History: Reports: Cardiac Catheterization - 2 stents, Coronary Stent - X2 stents in RCA, Other - Bladder cancer resection with urostomy Social History Information Source: Patient Smoking Status: Former Smoker Electronic Cigarette use?: No Frequency of Alcohol Use: None Drugs: None - Advance Directive Resuscitation Status: Full Code Family History Family History: Chronic Kidney Disease - Father Parental Family History Reviewed: Yes Children Family History Reviewed: Yes Sibling(s) Family History Reviewed.: Yes Medication/Allergy Home Medications: Atorvastatin Calcium [Lipitor 80 mg Tablet] 80 mg PO QHS 04/28/19 Lisinopril [Prinivil 10 mg Tablet] 10 mg PO DAILY 04/28/19 Pantoprazole Sodium [Protonix [address] Tablet] 40 mg PO Q6AM 04/28/19 Ticagrelor [Brilinta 90 mg Tablet] 90 mg PO Q12 04/28/19 Aspirin [Aspirin 81 mg Chewable Tablet] 81 mg PO DAILY 11/09/19 Cholecalciferol (Vitamin D3) [Vitamin D3 1000 Unit Tablet] 2,000 unit PO DAILY 11/09/19 Furosemide [Lasix 20 mg Tablet] 20 mg PO DAILY 11/09/19 Sodium Bicarbonate [Sodium Bicarbonate 650 mg Tablet] 650 mg PO DAILY 11/09/19 Allergies/Adverse Reactions: No Known Allergies Allergy (Verified 04/29/19 08:20) Review of Systems All systems: reviewed and no additional remarkable complaints except as stated Review of Systems: Constitutional: ABSENT: chills, fatigue, fever(s), headache(s), weight gain, weight loss Eyes: ABSENT: visual disturbances Ears: ABSENT: hearing changes Cardiovascular: ABSENT: chest pain, dyspnea on exertion, edema, orthropnea, palpitations Respiratory: ABSENT: cough, dyspnea, hemoptysis Gastrointestinal: ABSENT: abdominal pain, constipation, diarrhea, hematemesis, hematochezia, nausea, vomiting Genitourinary: ABSENT: dysuria, hematuria; reports decreased urine output Musculoskeletal: ABSENT: joint swelling Integumentary: ABSENT: rash, wounds Neurological: ABSENT: abnormal gait, abnormal speech, confusion, focal weakness, numbness, syncope; admits dizziness Psychiatric: ABSENT: anxiety, depression Endocrine: ABSENT: cold intolerance, heat intolerance, polydipsia, polyuria Hematologic/Lymphatic: ABSENT: easy bleeding, easy bruising, lymphadenopathy Physical Exam Vital Signs: Temp Pulse Resp BP Pulse Ox 97.7 F 95 16 86/53 L 100 11/10/19 08:23 11/10/19 08:23 11/10/19 08:23 11/10/19 08:23 11/10/19 08:23 Intake & Output 11/09/19 11/10/19 11/11/19 06:59 06:59 06:59 Intake Total 4182 Output Total 1375 Balance 2807 Weight 83.4 kg Exam: General appearance: No acute distress, cooperative, well-developed, well- nourished Head exam: PRESENT: atraumatic, normocephalic Eye exam: PRESENT: Conjunctiva slightly pale, EOMI, PERRLA. ABSENT: conjunctival injection, scleral icterus Mouth exam: PRESENT: moist, neck supple, tongue midline Neck exam: PRESENT: full ROM. ABSENT: carotid bruit, JVD, lymphadenopathy, thyromegaly Respiratory exam: PRESENT: clear to auscultation bilaterally. ABSENT: rales, rhonchi, stridor, wheezes Cardiovascular exam: PRESENT: RRR, +S1, +S2. ABSENT: systolic murmur Pulses: PRESENT: normal radial pulses, normal dorsalis pedis pulses GI/Abdominal exam: PRESENT: normal bowel sounds, soft. Urostomy bag in place with clear yellow looking urine ABSENT: guarding, mass, tenderness Rectal exam: Deferred Extremities exam: PRESENT: full ROM. ABSENT: calf tenderness, pedal edema Musculoskeletal: PRESENT: full ROM. ABSENT: deformity Neurological exam: PRESENT: alert, Awake, Oriented to person, Oriented to place, Oriented to time, reflexes normal, CN II-XII grossly intact. ABSENT: motor sensory deficit Psychiatric exam: PRESENT: appropriate affect, normal mood. ABSENT: homicidal ideation, suicidal ideation Skin exam: PRESENT: intact, dry, warm. ABSENT: rash Results Laboratory Results: 11/10/19 05:00 11/10/19 05:00 11/09/19 11/09/19 11/09/19 17:48 17:48 17:48 WBC 7.7 RBC 4.00 L Hgb 13.5 Hct 38.8 MCV 97 MCH 33.7 H MCHC 34.7 RDW 13.5 Plt Count 191 Seg Neutrophils % 79.3 H Sodium 132.6 L Potassium 4.8 Chloride 106 Carbon Dioxide 12 L Anion Gap 15 BUN 81 H Creatinine 5.11 H Est GFR ( Amer) 14 L Glucose 96 Lactic Acid 1.0 Calcium 8.8 Total Bilirubin 0.6 AST 17 Alkaline Phosphatase 91 Total Protein 7.1 Albumin 4.3 TSH 11/10/19 11/10/19 11/10/19 05:00 05:00 05:00 WBC 4.9 RBC 3.69 L Hgb 12.3 L Hct 35.9 L MCV 97 MCH 33.4 MCHC 34.3 RDW 13.7 Plt Count 146 L Seg Neutrophils % 70.6 Sodium 138.5 Potassium 4.4 Chloride 115 H Carbon Dioxide 13 L Anion Gap 11 BUN 70 H Creatinine 3.86 H Est GFR ( Amer) 19 L Glucose 77 Lactic Acid Calcium 8.3 L Total Bilirubin AST Alkaline Phosphatase Total Protein Albumin TSH 0.28 L 11/09/19 11/09/19 17:48 21:23 Troponin I < 0.012 < 0.012 Assessment & Plan - Diagnosis (1) Acute kidney injury superimposed on chronic kidney disease Is this a current diagnosis for this admission?: Yes Plan: Acute worsening of the patient's kidney function most likely secondary to hypotension with intravascular volume depletion causing prerenal azotemia as a result of possible overdiuresis with concomitant antihypertensive medications. Currently the patient is nonoliguric with good response to IV fluid resuscitation. Kidney function is improve from admission creatinine of 5.11 to 3.86 today. Baseline creatinine around 1.92.3. Continue to hold lisinopril and furosemide. Patient does not need any renal replacement therapy. Avoid nephrotoxic medications. Continue to monitor kidney function and electrolytes. (2) Metabolic acidosis Is this a current diagnosis for this admission?: Yes Plan: Secondary to PHILIPPE/CKD. I will start the patient on sodium bicarbonate at the limited drip. Continue oral sodium bicarbonate. (3) Hypotension Is this a current diagnosis for this admission?: Yes Plan: Likely secondary to overmedication. Not quite sure if patient really has adrenal insufficiency. (4) Anemia in chronic kidney disease (CKD) Is this a current diagnosis for this admission?: Yes (5) Coronary artery disease Is this a current diagnosis for this admission?: Yes Plan: Cardiology consulted. - Notes Notes: Thank you very much for this consultation. I will follow the patient with you. - Time Time Spent: 50 to 70 Minutes
[2019-11-10] MEDS: HYDROCORTISONE 10 MG TABLET PO SCH ×2 (12:39→17:51)
[2019-11-10] MEDS: ACETAMINOPHEN 325 MG TABLET PO PRN (12:40)
[2019-11-10] MEDS ORDERED: DEXTROSE 5%-WATER 1000 ML 1,000 ML with SODIUM BICARBONATE 150 MEQ IV PRN ×2 (13:00)
--- NOTE | 2019-11-10 13:19 | PDOC PROGRESS REPORT ---
Subjective Progress Note for:: 11/10/19 Subjective:: TIFFANY PARKER is a 64 year old male with a past medical history of coronary artery disease with stent placement November 2018, hypertension, dyslipidemia, chronic kidney disease and remote bladder cancer status post resection with urostomy who was admitted for hypotension and acute on chronic kidney injury. Patient was seen on morning rounds. He was found resting in bed, comfortably, on supplemental oxygen by nasal cannula. His primary complaint today is bilater al foot paresthesia which she reports is chronic; states that the [facility] has sent a referral to [facility] but he had trouble making the appointment. Is unable to clarify what type of specialist he was going to see. Otherwise, he states that he is feeling well. He denies fever, chills, chest pain, dizziness, lightheadedness, chest pain, palpitations, abdominal pain, nausea vomiting and diarrhea. He has no new questions or concerns. No concerns per nursing. Reason For Visit: ARF HYPOTENSION Physical Exam Vital Signs: Temp Pulse Resp BP Pulse Ox 97.7 F 90 16 86/53 L 100 11/10/19 08:23 11/10/19 12:57 11/10/19 12:57 11/10/19 08:23 11/10/19 12:57 Intake & Output 11/09/19 11/10/19 11/11/19 06:59 06:59 06:59 Intake Total 4182 Output Total 1375 Balance 2807 Weight 83.4 kg General appearance: PRESENT: no acute distress, cooperative, well-developed, well-nourished Head exam: PRESENT: atraumatic, normocephalic Eye exam: PRESENT: conjunctiva pink, EOMI, PERRLA. ABSENT: scleral icterus Mouth exam: PRESENT: moist, tongue midline Respiratory exam: PRESENT: clear to auscultation j luis, symmetrical, unlabored. ABSENT: rales, rhonchi, wheezes Cardiovascular exam: PRESENT: RRR. ABSENT: diastolic murmur, rubs, systolic murmur Pulses: PRESENT: normal dorsalis pedis pul Vascular exam: PRESENT: normal capillary refill GI/Abdominal exam: PRESENT: normal bowel sounds, soft, other - Diverting urostomy; clear yellow urine in bag.. ABSENT: distended, guarding, mass, organolmegaly, rebound, tenderness Rectal exam: PRESENT: deferred Extremities exam: PRESENT: full ROM. ABSENT: calf tenderness, clubbing, pedal edema Neurological exam: PRESENT: alert, awake, oriented to person, oriented to place, oriented to time, oriented to situation, CN II-XII grossly intact. ABSENT: motor sensory deficit Psychiatric exam: PRESENT: appropriate affect, normal mood. ABSENT: homicidal ideation, suicidal ideation Skin exam: PRESENT: dry, intact, warm. ABSENT: cyanosis, rash Results Laboratory Results: 11/10/19 05:00 11/10/19 05:00 11/09/19 11/09/19 11/09/19 17:48 17:48 17:48 WBC 7.7 RBC 4.00 L Hgb 13.5 Hct 38.8 MCV 97 MCH 33.7 H MCHC 34.7 RDW 13.5 Plt Count 191 Seg Neutrophils % 79.3 H Sodium 132.6 L Potassium 4.8 Chloride 106 Carbon Dioxide 12 L Anion Gap 15 BUN 81 H Creatinine 5.11 H Est GFR ( Amer) 14 L Glucose 96 Lactic Acid 1.0 Calcium 8.8 Total Bilirubin 0.6 AST 17 Alkaline Phosphatase 91 Total Protein 7.1 Albumin 4.3 TSH 11/10/19 11/10/19 11/10/19 05:00 05:00 05:00 WBC 4.9 RBC 3.69 L Hgb 12.3 L Hct 35.9 L MCV 97 MCH 33.4 MCHC 34.3 RDW 13.7 Plt Count 146 L Seg Neutrophils % 70.6 Sodium 138.5 Potassium 4.4 Chloride 115 H Carbon Dioxide 13 L Anion Gap 11 BUN 70 H Creatinine 3.86 H Est GFR ( Amer) 19 L Glucose 77 Lactic Acid Calcium 8.3 L Total Bilirubin AST Alkaline Phosphatase Total Protein Albumin TSH 0.28 L 11/09/19 11/09/19 17:48 21:23 Troponin I < 0.012 < 0.012 Assessment and Plan - Diagnosis (1) Acute kidney injury superimposed on chronic kidney disease Is this a current diagnosis for this admission?: Yes Plan: Baseline creatinine 1.9-2.3. Trended down; 5.11-> 3.6 Patient is admitted to the medical floor on continuous cardiac telemetry. Nephrology is consulted. Received generous IV fluids overnight; continues on bicarb drip per Dr. Courtney. We will avoid nephrotoxic medications as able. Encourage p.o. fluids. Strict I's and O's. Follow-up chemistry. (2) Acute renal failure Qualifiers: Acute renal failure type: unspecified Qualified Code(s): N17.9 - Acute kidney failure, unspecified Is this a current diagnosis for this admission?: Yes Plan: As above. (3) Adrenal insufficiency Is this a current diagnosis for this admission?: Yes Plan: Some concern for adrenal insufficiency related to patient's hypotension. Morning cortisol 8.10; slightly low. I have started on p.o. hydrocortisone 10 mg every morning, 5 mg early afternoon, 2.5 mg late afternoon. (4) Hypotension Is this a current diagnosis for this admission?: Yes Plan: Secondary to dehydration, PHILIPPE, adrenal insufficiency. Evaluation and management as above. Orthostatic blood pressures every shift. Fall precautions. - Time Time Spent with patient: 25-34 minutes Medications reviewed and adjusted accordingly: Yes Anticipated discharge: Home Within: within 48 hours
[2019-11-10] MEDS: ATORVASTATIN CALCIUM 80 MG TABLET PO SCH (22:24)
[2019-11-11] MEDS: PANTOPRAZOLE SODIUM 40 MG TABLET.DR PO SCH (05:26)
[2019-11-11] MEDS: HEPARIN SOD (PORCINE) 5,000 UNIT/ML 1 ML VIAL SUBCUT SCH ×3 (05:26→21:32)
[2019-11-11 06:08] LABS: ANION GAP 11 (5-19); BLOOD UREA NITROGEN 52 mg/dL (7-20); CALCIUM 8.8 mg/dL (8.4-10.2); CARBON DIOXIDE 13 mmol/L (22-30); CHLORIDE 114 mmol/L (98-107); GLUCOSE 104 mg/dL (75-110); POTASSIUM 3.9 mmol/L (3.6-5.0)
[2019-11-11] MEDS: ACETAMINOPHEN 325 MG TABLET PO PRN (06:14)
[2019-11-11] MEDS: SODIUM BICARBONATE 650 MG TABLET PO SCH ×4 (09:19→17:04)
[2019-11-11] MEDS: HYDROCORTISONE 10 MG TABLET PO SCH ×3 (09:19→17:03)
[2019-11-11] MEDS: TICAGRELOR 90 MG TABLET PO SCH ×2 (09:19→21:32)
[2019-11-11] MEDS: ASPIRIN 81 MG TABLET, CHEWABLE PO SCH (09:20)
[2019-11-11] MEDS: DOCUSATE SODIUM 100 MG CAPSULE PO SCH ×2 (09:20→17:04)
--- NOTE | 2019-11-11 09:59 | PDOC PROGRESS REPORT ---
Subjective Progress Note for:: 11/11/19 Subjective:: Patient seems to be doing well. He actually wants to go home. He has a good urine output from his urostomy of about 2340 mL for the past 24 hours. He does have negative fluid balance though. His blood pressure is also improved. He states that he feels better and does not have any new complaints. Reason For Visit: ARF HYPOTENSION Physical Exam Vital Signs: Temp Pulse Resp BP Pulse Ox 98.1 F 79 16 95/54 L 98 11/11/19 03:25 11/11/19 07:00 11/11/19 03:25 11/11/19 03:25 11/11/19 03:25 Intake & Output 11/10/19 11/11/19 11/12/19 06:59 06:59 06:59 Intake Total 4182 1290 Output Total 1375 2340 Balance 2807 -1050 Weight 83.4 kg 85.2 kg Exam: General appearance: PRESENT: no acute distress, cooperative, well-developed, well-nourished Head exam: PRESENT: atraumatic, normocephalic Eye exam: PRESENT: conjunctiva slightly pale, PERRLA. ABSENT: scleral icterus Neck exam: ABSENT: JVD Respiratory exam: PRESENT: Normal breath sounds. ABSENT: crackles, rales, rhonchi, unlabored, wheezes Cardiovascular exam: PRESENT: Regular rate rhythm -+S1, +S2. ABSENT: diastolic murmur, systolic murmur GI/Abdominal exam: PRESENT: normal bowel sounds, soft. ABSENT: guarding, mass, tenderness Extremities exam: ABSENT: No edema Neurological exam: PRESENT: alert, awake, oriented to person, place and time. Skin exam: PRESENT: dry, warm, Results Laboratory Results: 11/10/19 05:00 11/11/19 04:06 11/11/19 04:06 Sodium 138.2 Potassium 3.9 Chloride 114 H Carbon Dioxide 13 L Anion Gap 11 BUN 52 H Creatinine 2.75 H Est GFR ( Amer) 28 L Glucose 104 Calcium 8.8 11/09/19 11/09/19 17:48 21:23 Troponin I < 0.012 < 0.012 Assessment & Plan - Diagnosis (1) Acute kidney injury superimposed on chronic kidney disease Is this a current diagnosis for this admission?: Yes Plan: Secondary to acute prerenal azotemia due to intravascular volume depletion and hypotension. Currently improving with improved urine output and decreased creatinine. Once the creatinine is near baseline I think the patient can be discharged home in the next 24 hours. (2) Metabolic acidosis Is this a current diagnosis for this admission?: Yes Plan: Due to PHILIPPE/CKD. Continue sodium bicarbonate drip and will increase it to 100 mL an hour. I will also increase his sodium bicarbonate tablets to 3 times a day to correct his acidosis. If the bicarbonate is improving by tomorrow I think he can be safely discharged. (3) Hypotension Is this a current diagnosis for this admission?: Yes Plan: Much improved. Recommend to continue to be off the lisinopril. I told the patient that if he is able to go home tomorrow not to take his lisinopril yet. I instructed him to check his blood pressure and if his the systolic blood pressure is anywhere between 90 and above I think he can start lisinopril 5 mg daily which is a quarter of his tablets at home. I do not think the patient needs furosemide at this time. (4) Anemia in chronic kidney disease (CKD) Is this a current diagnosis for this admission?: Yes (5) Coronary artery disease Is this a current diagnosis for this admission?: Yes Plan: Patient to continue to follow-up with Dr. Rivero as an outpatient post discharge. - Notes Notes: Discussed with LORENE Padilla. If he continues to improve by tomorrow I think he can be discharged home. - Time Time with patient: 15-25 minutes
[2019-11-11] MEDS: DEXTROSE 5%-WATER 1000 ML 1,000 ML with SODIUM BICARBONATE 150 MEQ IV PRN ×2 (13:39)
--- NOTE | 2019-11-11 16:24 | PDOC PROGRESS REPORT ---
Subjective Progress Note for:: 11/11/19 Subjective:: TIFFANY PARKER is a 64 year old male with a past medical history of coronary artery disease with stent placement November 2018, hypertension, dyslipidemia, chronic kidney disease and remote bladder cancer status post resection with urostomy who was admitted for hypotension and acute on chronic kidney injury. Patient was seen on morning rounds. He was found resting in bed, comfortably, on room air. He states he is feeling well and asks to go home today. He is rem inded that Dr. Courtney would like to keep him overnight for additional IV fluids; he agrees to stay. He again comments on his chronic peripheral neuropathy but otherwise has no questions or concerns today. He denies fever, chills, chest pain, dizziness, lightheadedness, chest pain, palpitations, abdominal pain, nausea vomiting and diarrhea. No concerns per nursing. Reason For Visit: ARF HYPOTENSION Physical Exam Vital Signs: Temp Pulse Resp BP Pulse Ox 97.7 F 78 18 99/61 L 100 11/11/19 13:15 11/11/19 14:00 11/11/19 13:15 11/11/19 13:15 11/11/19 13:15 Intake & Output 11/10/19 11/11/19 11/12/19 06:59 06:59 06:59 Intake Total 4182 1290 240 Output Total 1375 2340 580 Balance 2807 -1050 -340 Weight 83.4 kg 85.2 kg General appearance: PRESENT: no acute distress, cooperative, well-developed, well-nourished - Weight Head exam: PRESENT: atraumatic, normocephalic Eye exam: PRESENT: conjunctiva pink, EOMI, PERRLA. ABSENT: scleral icterus Mouth exam: PRESENT: moist, tongue midline Respiratory exam: PRESENT: clear to auscultation j luis, symmetrical, unlabored, other - Room air. ABSENT: rales, rhonchi, wheezes Cardiovascular exam: PRESENT: RRR. ABSENT: diastolic murmur, rubs, systolic murmur Pulses: PRESENT: normal dorsalis pedis pul Vascular exam: PRESENT: normal capillary refill GI/Abdominal exam: PRESENT: other - Diverting urostomy Extremities exam: PRESENT: full ROM. ABSENT: calf tenderness, clubbing, pedal edema Musculoskeletal exam: PRESENT: ambulatory Neurological exam: PRESENT: alert, awake, oriented to person, oriented to place, oriented to time, oriented to situation, CN II-XII grossly intact. ABSENT: motor sensory deficit Psychiatric exam: PRESENT: appropriate affect, normal mood. ABSENT: homicidal ideation, suicidal ideation Skin exam: PRESENT: dry, intact, warm. ABSENT: cyanosis, rash Results Laboratory Results: 11/10/19 05:00 11/11/19 04:06 11/11/19 04:06 Sodium 138.2 Potassium 3.9 Chloride 114 H Carbon Dioxide 13 L Anion Gap 11 BUN 52 H Creatinine 2.75 H Est GFR ( Amer) 28 L Glucose 104 Calcium 8.8 11/09/19 11/09/19 17:48 21:23 Troponin I < 0.012 < 0.012 Assessment and Plan - Diagnosis (1) Acute kidney injury superimposed on chronic kidney disease Is this a current diagnosis for this admission?: Yes Plan: Continues to improve. Baseline creatinine 1.9-2.3. Trended down; 5.11-> 3.6-> 2.75 Patient is admitted to the medical floor on continuous cardiac telemetry. Nephrology is consulted. Received generous IV fluids overnight; continues on bicarb drip per Dr. Courtney. We will avoid nephrotoxic medications as able. Encourage p.o. fluids. Strict I&O's. Follow-up chemistry. (2) Acute renal failure Qualifiers: Acute renal failure type: unspecified Qualified Code(s): N17.9 - Acute kidney failure, unspecified Is this a current diagnosis for this admission?: Yes Plan: As above. (3) Adrenal insufficiency Is this a current diagnosis for this admission?: Yes Plan: Some concern for adrenal insufficiency related to patient's hypotension. Morning cortisol 8.10; slightly low. I have started on p.o. hydrocortisone 10 mg every morning, 5 mg early afternoon, 2.5 mg late afternoon. (4) Hypotension Is this a current diagnosis for this admission?: Yes Plan: Secondary to dehydration, PHILIPPE, adrenal insufficiency. Evaluation and management as above. Orthostatic blood pressures every shift. Fall precautions. - Time Time Spent with patient: 25-34 minutes Medications reviewed and adjusted accordingly: Yes Anticipated discharge: Home Within: within 24 hours
[2019-11-11] MEDS: ATORVASTATIN CALCIUM 80 MG TABLET PO SCH (21:32)
[2019-11-12] MEDS: DEXTROSE 5%-WATER 1000 ML 1,000 ML with SODIUM BICARBONATE 150 MEQ IV PRN ×2 (04:12)
[2019-11-12] MEDS: HEPARIN SOD (PORCINE) 5,000 UNIT/ML 1 ML VIAL SUBCUT SCH (05:37)
[2019-11-12] MEDS: PANTOPRAZOLE SODIUM 40 MG TABLET.DR PO SCH (05:38)
[2019-11-12 05:39] LABS: ANION GAP 9 (5-19); BLOOD UREA NITROGEN 35 mg/dL (7-20); CALCIUM 8.6 mg/dL (8.4-10.2); CARBON DIOXIDE 20 mmol/L (22-30); CHLORIDE 110 mmol/L (98-107); GLUCOSE 99 mg/dL (75-110); POTASSIUM 3.5 mmol/L (3.6-5.0)
[2019-11-12] MEDS ORDERED: POTASSIUM CHLORIDE 10 MEQ TABLET.ER PO ONE (09:00)
[2019-11-12] MEDS: HYDROCORTISONE 10 MG TABLET PO SCH (09:23)
[2019-11-12] MEDS: TICAGRELOR 90 MG TABLET PO SCH (09:23)
[2019-11-12] MEDS: SODIUM BICARBONATE 650 MG TABLET PO SCH (09:23)
[2019-11-12] MEDS: DOCUSATE SODIUM 100 MG CAPSULE PO SCH (09:24)
[2019-11-12] MEDS: ASPIRIN 81 MG TABLET, CHEWABLE PO SCH (09:24)
[2019-11-12 13:55] VITALS: BP 96/50
--- NOTE | 2019-11-13 18:45 | PDOC DISCHARGE SUMMARY ---
Impression - Admit/DC Date/PCP Admission Date/Primary Care Provider: 11/09/19 19:24 JORGE BAZAN MD Discharge Date: 11/12/19 - Discharge Diagnosis (1) Acute kidney injury superimposed on chronic kidney disease Is this a current diagnosis for this admission?: Yes (2) Acute renal failure Is this a current diagnosis for this admission?: Yes (3) Adrenal insufficiency Is this a current diagnosis for this admission?: Yes (4) Hypotension Is this a current diagnosis for this admission?: Yes - Additional Information Resuscitation Status: Full Code Discharge Diet: Cardiac, Other (Comments) Discharge Activity: Activity As Tolerated, Balance Activity w/Rest, Keep Legs Elevated, Weigh Daily Referrals: JORGE BAZAN MD [Primary Care Provider] - (Follow up within 2-3 weeks) CURTIS RIVERO MD [ACTIVE STAFF] - (Follow up as scheduled.) Prescriptions: Hydrocortisone [Cortef 10 mg Tablet] 10 mg PO QAM #30 tablet Hydrocortisone [Cortef 10 mg Tablet] 2.5 mg PO DAILY@1600 #30 tablet Hydrocortisone [Cortef 10 mg Tablet] 5 mg PO DAILY@1300 #30 tablet Lisinopril [Prinivil 5 mg Tablet] 5 mg PO DAILY #30 tablet Sodium Bicarbonate [Sodium Bicarbonate 650 mg Tablet] 650 mg PO TID #90 tablet Home Medications: Atorvastatin Calcium [Lipitor 80 mg Tablet] 80 mg PO QHS 04/28/19 Pantoprazole Sodium [Protonix [address] Tablet] 40 mg PO Q6AM 04/28/19 Ticagrelor [Brilinta 90 mg Tablet] 90 mg PO Q12 04/28/19 Aspirin [Aspirin 81 mg Chewable Tablet] 81 mg PO DAILY 11/09/19 Cholecalciferol (Vitamin D3) [Vitamin D3 1000 Unit Tablet] 2,000 unit PO DAILY 11/09/19 Acetaminophen [Tylenol 325 mg Tablet] 650 mg PO Q4HP PRN tablet 11/12/19 Hydrocortisone [Cortef 10 mg Tablet] 2.5 mg PO DAILY@1600 #30 tablet 11/12/19 Hydrocortisone [Cortef 10 mg Tablet] 5 mg PO DAILY@1300 #30 tablet 11/12/19 Hydrocortisone [Cortef 10 mg Tablet] 10 mg PO QAM #30 tablet 11/12/19 Lisinopril [Prinivil 5 mg Tablet] 5 mg PO DAILY #30 tablet 11/12/19 Sodium Bicarbonate [Sodium Bicarbonate 650 mg Tablet] 650 mg PO TID #90 tablet 11/12/19 History of Present Illiness History of Present Illness: Per H&P by Dr. Garibay: TIFFANY PARKER is a 64 year old male with a past medical history of coronary artery disease with stent placement November 2018, hypertension, dyslipidemia, chronic kidney disease and remote bladder cancer status post resection with urostomy. He presents with approximately 2 weeks of fatigue and lightheadedness poor p.o. intake and low urine output prompting him to seek his primary care provider Dr. Bazan. Work-up revealed a rapid reduction in GFR prompting referral to the emergency department where he is found to have a creatinine of 5 from a baseline of 2 and hypotension of 90 systolic without tachycardia. He is started on IV fluid and referred to the hospitalist for admission. Patient denies recent change in medication with exception to calcium carbonate and vitamin D 3 days ago. He denies chest pain nausea vomiting or shortness of breath. Hospital Course Hospital Course: (1) Acute kidney injury superimposed on chronic kidney disease Resolved. Baseline creatinine 1.9-2.3. Trended down; 5.11-> 3.6-> 2.75-> 1.97 Patient was admitted to the medical floor on continuous cardiac telemetry. Nephrology was consulted. Received generous IV fluids and was placed on bicarb drip per Dr. Bazan. Home dose p.o. Sodium Bicarb was also adjusted by Dr. aBzan. (2) Acute renal failure Resolved. As above. (3) Adrenal insufficiency Mild adrenal insufficiency Morning cortisol 8.10; slightly low. Continue p.o. hydrocortisone 10 mg every morning, 5 mg early afternoon, 2.5 mg late afternoon. (4) Hypotension Resolved. Secondary to dehydration, PHILIPPE, adrenal insufficiency. Evaluation and management as above. Physical Exam Vital Signs: Temp Pulse Resp BP Pulse Ox 97.5 F 60 20 96/50 L 100 11/12/19 13:54 11/12/19 13:54 11/12/19 13:54 11/12/19 13:54 11/12/19 13:54 Intake & Output 11/12/19 11/13/19 11/14/19 06:59 06:59 06:59 Intake Total 2600 360 Output Total 2680 900 Balance -80 -540 Weight 89.1 kg General appearance: PRESENT: no acute distress, well-developed, well-nourished - overweight Head exam: PRESENT: atraumatic, normocephalic Eye exam: PRESENT: conjunctiva pink, EOMI, PERRLA. ABSENT: scleral icterus Mouth exam: PRESENT: moist, tongue midline Respiratory exam: PRESENT: clear to auscultation j luis, symmetrical, unlabored. ABSENT: rales, rhonchi, wheezes Cardiovascular exam: PRESENT: RRR. ABSENT: diastolic murmur, rubs, systolic murmur Vascular exam: PRESENT: normal capillary refill GI/Abdominal exam: PRESENT: normal bowel sounds, soft, other - diverting urostomy w/ clear, light yellow, urine. ABSENT: distended, guarding, mass, organolmegaly, rebound, tenderness Rectal exam: PRESENT: deferred Extremities exam: PRESENT: full ROM. ABSENT: calf tenderness, clubbing, pedal edema Musculoskeletal exam: PRESENT: ambulatory Neurological exam: PRESENT: alert, awake, oriented to person, oriented to place, oriented to time, oriented to situation, CN II-XII grossly intact. ABSENT: motor sensory deficit Psychiatric exam: PRESENT: appropriate affect, normal mood. ABSENT: homicidal ideation, suicidal ideation Skin exam: PRESENT: dry, intact, warm. ABSENT: cyanosis, rash Results Laboratory Results: WBC 4.9 10^3/uL (4.0-10.5) 11/10/19 05:00 RBC 3.69 10^6/uL (4.35-5.55) L 11/10/19 05:00 Hgb 12.3 g/dL (13.5-17.0) L 11/10/19 05:00 Hct 35.9 % (37.9-51.0) L 11/10/19 05:00 MCV 97 fl (80-97) 11/10/19 05:00 MCH 33.4 pg (27.0-33.4) 11/10/19 05:00 MCHC 34.3 g/dL (32.0-36.0) 11/10/19 05:00 RDW 13.7 % (11.5-14.0) 11/10/19 05:00 Plt Count 146 10^3/uL (150-450) L 11/10/19 05:00 Lymph % (Auto) 19.1 % (13-45) 11/10/19 05:00 [place] % (Auto) 9.3 % (3-13) 11/10/19 05:00 Eos % (Auto) 0.6 % (0-6) 11/10/19 05:00 Baso % (Auto) 0.4 % (0-2) 11/10/19 05:00 Absolute Neuts (auto) 3.5 10^3/uL (1.7-8.2) 11/10/19 05:00 Absolute Lymphs (auto) 0.9 10^3/uL (0.5-4.7) 11/10/19 05:00 Absolute Monos (auto) 0.5 10^3/uL (0.1-1.4) 11/10/19 05:00 Absolute Eos (auto) 0.0 10^3/uL (0.0-0.6) 11/10/19 05:00 Absolute Basos (auto) 0.0 10^3/uL (0.0-0.2) 11/10/19 05:00 Seg Neutrophils % 70.6 % (42-78) 11/10/19 05:00 Sodium 139.0 mmol/L (137-145) 11/12/19 04:25 Potassium 3.5 mmol/L (3.6-5.0) L 11/12/19 04:25 Chloride 110 mmol/L (98-107) H 11/12/19 04:25 Carbon Dioxide 20 mmol/L (22-30) L 11/12/19 04:25 Anion Gap 9 (5-19) 11/12/19 04:25 BUN 35 mg/dL (7-20) H 11/12/19 04:25 Creatinine 1.97 mg/dL (0.52-1.25) H 11/12/19 04:25 Est GFR ( Amer) 41 (>60) L 11/12/19 04:25 Est GFR (MDRD) Non-Af 34 (>60) L 11/12/19 04:25 Glucose 99 mg/dL (75-110) 11/12/19 04:25 Lactic Acid 1.0 mmol/L (0.7-2.1) 11/09/19 17:48 Calcium 8.6 mg/dL (8.4-10.2) 11/12/19 04:25 Total Bilirubin 0.6 mg/dL (0.2-1.3) 11/09/19 17:48 Direct Bilirubin 0.1 mg/dL (0.0-0.4) 11/09/19 17:48 Neonat Total Bilirubin Not Reportable 11/09/19 17:48 Neonat Direct Bilirubin Not Reportable 11/09/19 17:48 Neonat Indirect Bili Not Reportable 11/09/19 17:48 AST 17 U/L (17-59) 11/09/19 17:48 ALT 14 U/L (<50) 11/09/19 17:48 Alkaline Phosphatase 91 U/L (38-126) 11/09/19 17:48 Troponin I < 0.012 ng/mL 11/09/19 21:23 Total Protein 7.1 g/dL (6.3-8.2) 11/09/19 17:48 Albumin 4.3 g/dL (3.5-5.0) 11/09/19 17:48 TSH 0.28 uIU/mL (0.47-4.68) L 11/10/19 05:00 Random Cortisol 8.10 ug/dL (None Established) 11/10/19 05:00 11/09/19 11/09/19 17:48 21:23 Troponin I < 0.012 < 0.012 Plan Plan of Treatment: Patient was discharged in stable condition. He was advised to follow up with his PCP within 1 week, Dr. Bazan within 2-3 weeks, and with Dr. Rivero as scheduled. He is advised to resume half-dose (5 mg) lisinopril daily and to only utilize his furosemide prn for wt gain >2lbs overnight. Continue to check blood pressure daily, at home, seek care SBP<90 immediately and Hold lisinopril and furosemide for SBP<[address] Bazan or Dr. Rivero for further instructions. He is instructed eat heart a heart healthy, low potassium diet. Return to the emergency department as needed for concerning symptoms. Time Spent: Greater than 30 Minutes Stroke Is this a Stroke Patient?: No Acute Heart Failure - Is this a Heart Failure Patient?: No
== END 2019-11-12 14:18 | disposition home or self-care (01) | DRG 683 ==
LOC: ER 16:30 → EH 19:24 → 3N 21:45
PROVIDERS: ADMIT Internal Medicine; ATTEND Registered Nurse
DX: N17.9 Acute kidney failure, unspecified (principal); E27.40 Unspecified adrenocortical insufficiency; E87.2 Acidosis; I95.9 Hypotension, unspecified; I12.9 Hypertensive chronic kidney disease with stage 1 through stage 4 chronic kidney disease, or unspecified chronic kidney disease; D63.1 Anemia in chronic kidney disease; N18.3 Chronic kidney disease, stage 3 (moderate); I25.10 Atherosclerotic heart disease of native coronary artery without angina pectoris; E78.00 Pure hypercholesterolemia, unspecified; I25.2 Old myocardial infarction; Z95.5 Presence of coronary angioplasty implant and graft
CPT/HCPCS: 36415; 80048; 80053; 82533; 83605; 84443; 84484; 85025; 93005; 93010; 96360; 99285; J1644; J1720; J3490; J7030; J7060

== ENCOUNTER 2020-03-31 12:49 | Emergency (ER) | payer MEDICARE, OTHER ==
--- NOTE | 2020-03-31 13:07 | ER Document Report ---
ED Medical Screen (RME) - General Chief Complaint: Urinary Problem Stated Complaint: BLOOD IN URINE Time Seen by Provider: 03/31/20 13:01 Primary Care Provider: JORGE BAZAN MD [Primary Care Provider] - Follow up as needed Mode of Arrival: Ambulatory Information source: Patient Notes: HPI; 64-year-old male presents the emergency room stating he noted blood in his ileostomy bag this morning. He denies any fevers. No pain. No trauma. Is on blood thinners. PE: Alert and oriented x3. Lungs: Clear to auscultation without rales, rhonchi, wheezes. Heart: Regular rate rhythm without murmurs, rubs, gallops. I have greeted and performed a rapid initial assessment of this patient. A comprehensive ED assessment and evaluation of the patient, analysis of test results and completion of the medical decision making process will be conducted by additional ED providers. I have specifically instructed the patient or family members with the patient to immediately return to any nursing staff should anything change in the patient's condition or with their chief complaint. TRAVEL OUTSIDE OF THE [place] IN LAST 30 DAYS: No - Related Data Allergies/Adverse Reactions: No Known Allergies Allergy (Verified 04/29/19 08:20) Past Medical History - Past Medical History Cardiac Medical History: Reports: Hx Coronary Artery Disease, Hx Heart Attack - 11/2018 STENTS X2, Hx Hypercholesterolemia, Hx Hypertension, Hx Peripheral Vascu lar Disease Pulmonary Medical History: Denies: Hx Asthma, Hx Bronchitis, Hx COPD, Hx Pneumonia Neurological Medical History: Denies: Hx Cerebrovascular Accident, Hx Seizures Renal/ Medical History: Reports: Hx Kidney Stones. Denies: Hx Peritoneal Dialysis GI Medical History: Reports: Hx Gastroesophageal Reflux Disease Musculoskeltal Medical History: Denies Hx Arthritis Psychiatric Medical History: Denies: Hx Depression Past Surgical History: Reports: Hx Cardiac Catheterization - 2 stents, Hx Cardiac Surgery, Hx Coronary Stent - X2 stents in RCA, Hx Urinary Tract Surgery - Bladder resection for cancer, Hx Urostomy, Other - Bladder cancer resection with urostomy - Immunizations Hx Diphtheria, Pertussis, Tetanus Vaccination: Yes Physical Exam - Vital signs Vitals: Temp Pulse Resp BP Pulse Ox 97.7 F 64 20 160/76 H 99 03/31/20 12:57 03/31/20 12:57 03/31/20 12:57 03/31/20 12:57 03/31/20 12:57 Course - Vital Signs Vital signs: Temp Pulse Resp BP Pulse Ox 97.7 F 64 20 160/76 H 99 03/31/20 12:57 03/31/20 12:57 03/31/20 12:57 03/31/20 12:57 03/31/20 12:57 Doctor's Discharge - Discharge Referrals: JORGE BAZAN MD [Primary Care Provider] - Follow up as needed
[2020-03-31 13:53] LABS: ABSOLUTE MONOCYTES (AUTO) 0.5 10^3/uL (0.1-1.4); ABSOLUTE NEUT (AUTO) 5.6 10^3/uL (1.7-8.2); BASOPHILS % (AUTO) 0.3 % (0-2); EOSINOPHILS % (AUTO) 0.4 % (0-6); HEMATOCRIT 39.8 % (37.9-51.0); HEMOGLOBIN 13.6 g/dL (13.5-17.0); LYMPHOCYTES % (AUTO) 14.4 % (13-45); MEAN CORPUSCULAR HEMOGLOBIN 30.5 pg (27.0-33.4); MEAN CORPUSCULAR HGB CONC 34.1 g/dL (32.0-36.0); MEAN CORPUSCULAR VOLUME 89 fl (80-97); MONOCYTES % (AUTO) 6.7 % (3-13); PLATELET COUNT 229 10^3/uL (150-450); RED BLOOD COUNT 4.45 10^6/uL (4.35-5.55); RED CELL DISTRIBUTION WIDTH 14.8 % (11.5-14.0); SEGMENTED NEUTROPHILS % (AUTO) 78.2 % (42-78); TOTAL CELLS COUNTED % (AUTO) 100 %; WHITE BLOOD COUNT 7.1 10^3/uL (4.0-10.5)
[2020-03-31 13:59] LABS: INTERNATIONAL RATION (INR) 0.97; PROTHROMBIN TIME 13.1 SEC (11.4-15.4)
[2020-03-31 14:08] LABS: APPEARANCE,URINE SLIGHTLY-CLOUDY; BILIRUBIN,URINE NEGATIVE (NEGATIVE); COLOR,URINE YELLOW; GLUCOSE, URINE NEGATIVE (NEGATIVE); KETONES,URINE NEGATIVE (NEGATIVE); LEUKOCYTE ESTERASE,URINE LARGE (NEGATIVE); NITRITE,URINE POSITIVE (NEGATIVE); PROTEIN,URINE 100 mg/dL (NEGATIVE); URINE SPECIFIC GRAVITY 1.012; UROBILINOGEN,URINE NEGATIVE mg/dL (<2.0)
[2020-03-31 14:09] LABS: ALBUMIN 4.5 g/dL (3.5-5.0); ALKALINE PHOSPHATASE 91 U/L (38-126); ANION GAP 11 (5-19); ASPARTATE AMINO TRANSFERASE 24 U/L (17-59); BILIRUBIN,DIRECT 0.3 mg/dL (0.0-0.4); BILIRUBIN,TOTAL 0.6 mg/dL (0.2-1.3); BLOOD UREA NITROGEN 12 mg/dL (7-20); CALCIUM 9.3 mg/dL (8.4-10.2); CARBON DIOXIDE 18 mmol/L (22-30); CHLORIDE 110 mmol/L (98-107); GLUCOSE 99 mg/dL (75-110); POTASSIUM 3.7 mmol/L (3.6-5.0); TOTAL PROTEIN 7.4 g/dL (6.3-8.2)
--- NOTE | 2020-03-31 14:23 | ER Document Report ---
ED General - General Chief Complaint: Blood in Catheter Stated Complaint: BLOOD IN URINE Time Seen by Provider: 03/31/20 13:01 Primary Care Provider: JORGE BAZAN MD [ACTIVE STAFF] - Follow up as needed Mode of Arrival: Ambulatory Information source: Patient Notes: Patient is a 64-year-old male coming in today with some blood in his urostomy bag. The symptoms started today spontaneously. Patient is actually feeling well otherwise. He is not having any abdominal pain, nausea, vomiting, fevers, or shaking chills. He has a history of bladder cancer back in 2007. He has a urostomy since then. He is also on Brilinta because he has [address]. He is not having any weakness, lightheadedness, shortness of breath, dizziness, or near syncope. TRAVEL OUTSIDE OF THE [place] IN LAST 30 DAYS: No - Related Data Allergies/Adverse Reactions: No Known Allergies Allergy (Verified 04/29/19 08:20) Past Medical History - General Information source: Patient - Social History Smoking Status: Never Smoker Chew tobacco use (# tins/day): No Drug Abuse: None Family History: Other - Unknown, patient does not have a relationship with his siblings or parents - Past Medical History Cardiac Medical History: Reports: Hx Coronary Artery Disease, Hx Heart Attack - 11/2018 STENTS X2, Hx Hypercholesterolemia, Hx Hypertension, Hx Peripheral Vascular Disease Pulmonary Medical History: Denies: Hx Asthma, Hx Bronchitis, Hx COPD, Hx Pneumonia Neurological Medical History: Denies: Hx Cerebrovascular Accident, Hx Seizures Renal/ Medical History: Reports: Hx Kidney Stones. Denies: Hx Peritoneal Dialysis GI Medical History: Reports: Hx Gastroesophageal Reflux Disease Musculoskeletal Medical History: Denies Hx Arthritis Psychiatric Medical History: Denies: Hx Depression Past Surgical History: Reports: Hx Cardiac Catheterization - 2 stents, Hx Cardiac Surgery, Hx Coronary Stent - X2 stents in RCA, Hx Urinary Tract Surgery - Bladder resection for cancer, Hx Urostomy, Other - Bladder cancer resection with urostomy - Immunizations Hx Diphtheria, Pertussis, Tetanus Vaccination: Yes Review of Systems - Review of Systems Notes: Constitutional: No fevers. No chills. EENT: No eye redness. No eye pain. No ear pain. No sore throat. Cardiovascular: No chest pain. No palpitations. Respiratory: No cough. No shortness of breath. No respiratory distress. Gastrointestinal: No abdominal pain. No nausea, vomiting, or diarrhea. Genitourinary: Atraumatic. No lesions. No pain. No discharge. Positive hematuria Musculoskeletal: Atraumatic. No swelling. No deformities. Skin: No rash or lesions. Lymphatic: No swollen lymph nodes. Neurologic: No headache. No syncope. Psychiatric: No suicidal or homicidal ideation. Physical Exam - Vital signs Vitals: Temp Pulse Resp BP Pulse Ox 97.7 F 64 20 160/76 H 99 03/31/20 12:57 03/31/20 12:57 03/31/20 12:57 03/31/20 12:57 03/31/20 12:57 - Notes Notes: General: Well-developed, well-nourished. In no acute distress. Non-toxic appearing. Cardiac: Well-perfused. Regular rate and rhythm. No murmurs, rubs, or gallops. Pulmonary: No respiratory distress. No cyanosis. Bilateral lung fiels are clear to auscultation. Abdominal: Non-distended. Non-rigid. Bowels sounds are present in all four quadrants. No guarding or rebound. No CVA tenderness HEENT: Head is atraumatic. Conjunctivae not reddened. No tearing. PERRL. EOMI. Orbits atraumatic. No periorbital swelling or erythema. Oropharynx is without erythema, swelling, or exudates. Neck: Supple. No adenopathy. No meningismus. Dermatologic: Warm with good turgor. No rash. Atraumatic. Chest: Atraumatic. No chest wall tenderness to palpation. Musculoskeletal: Moves all extremities well. No range of motion deficits. no muscular or joint tenderness. No paraspinal muscle tenderness. no midline spinal tenderness or step-off. Genitourinary: Examination deferred. Blood-tinged urine in the urostomy bag Neurologic: No gross neurologic deficits. Psychiatric: Normal mood. Course - Re-evaluation Re-evalutation: 03/31/20 14:22 On exam, patient looks very well. Does not look anemic or acutely ill. Will check to see if he has any signs of anemia from blood loss which I highly doubt. Suspect probably a urinary tract infection. 03/31/20 15:08 Patient is still looking good. Vital signs stable. No abdominal pain or vomiting. Fluid in the bag still is slightly blood-tinged but no blood in the bag. Urinalysis is strongly positive with nitrites. IM Rocephin and discharged home on Keflex. 03/31/20 15:09 Kidney functions consistent with the previous pattern. - Vital Signs Vital signs: Temp Pulse Resp BP Pulse Ox 97.7 F 64 20 160/76 H 99 03/31/20 12:57 03/31/20 12:57 03/31/20 12:57 03/31/20 12:57 03/31/20 12:57 - Laboratory Result Diagrams: 03/31/20 13:39 03/31/20 13:39 Laboratory results interpreted by me: 03/31/20 03/31/20 03/31/20 13:39 13:39 13:39 RDW 14.8 H Seg Neutrophils % 78.2 H Chloride 110 H Carbon Dioxide 18 L Creatinine 1.99 H Est GFR ( Amer) 41 L Est GFR (MDRD) Non-Af 34 L Urine Protein 100 H Urine Blood LARGE H Urine Nitrite POSITIVE H Ur Leukocyte Esterase LARGE H Discharge - Discharge Clinical Impression: Elevated blood pressure reading Urinary tract infection Qualifiers: Urinary tract infection type: site unspecified Hematuria presence: with hematuria Qualified Code(s): N39.0 - Urinary tract infection, site not specified; R31.9 - Hematuria, unspecified Chronic kidney disease Qualifiers: Chronic kidney disease stage: unspecified stage Qualified Code(s): N18.9 - Chronic kidney disease, unspecified Condition: Good Disposition: HOME, SELF-CARE Instructions: Cephalexin ([facility]), Urinary Tract Infection ([facility]) Additional Instructions: Please follow-up with your primary care doctor on Friday for a recheck of your urine. You can start the oral antibiotics tomorrow. Be sure to take as directed for full duration. Prescriptions: Cephalexin Monohydrate [Keflex 500 mg Capsule] 500 mg PO Q6H 7 Days #28 capsule
[2020-03-31] MEDS ORDERED: CEFTRIAXONE 1 GM/D5W RTU 1 GM/50 ML RTUPB IV ONE ×2 (15:01→15:13)
[2020-03-31] MEDS ORDERED: CEFTRIAXONE INJ 1000 MG VIAL IM ONE ×2 (15:07→15:16)
[2020-03-31] MEDS ORDERED: LIDOCAINE 1% INJ-PF (10 MG/ML) 30 ML SDV INJ ONE (15:16)
[2020-03-31 16:00] VITALS: BP 159/85
== END 2020-03-31 16:01 | disposition home or self-care (01) ==
LOC: ER 12:49
DX: I12.9 Hypertensive chronic kidney disease with stage 1 through stage 4 chronic kidney disease, or unspecified chronic kidney disease (principal); N18.9 Chronic kidney disease, unspecified; N39.0 Urinary tract infection, site not specified; R31.9 Hematuria, unspecified; R03.0 Elevated blood-pressure reading, without diagnosis of hypertension; T85.9XXA Unspecified complication of internal prosthetic device, implant and graft, initial encounter; I25.10 Atherosclerotic heart disease of native coronary artery without angina pectoris; I25.2 Old myocardial infarction
CPT/HCPCS: 99284; 96372; 36415; 85025; 85610; 80053; 81001; J3490; J0696